=== PATIENT | female | born 1955 | race African-American/Black ===

== ENCOUNTER 2020-04-19 10:44 | Inpatient (IN) | payer MEDICARE, MEDICAID, SELFPAY ==
[2020-04-19] VITALS (12 sets, daily range): BP systolic 139–162; BP diastolic 66–100; PULSE 72–93; RESP 16–26; TEMP 36–37.1; O2SAT 97–100; BMI 35.0
--- NOTE | ~2020-04-19 | CT_ITS ---
EXAMINATION: CT soft tissue neck w con EXAM DATE: 04/19/2020 11:24 INDICATION: Tongue swelling starting today. TECHNIQUE: Spiral CT of the neck was performed following intravenous injection of 75 mL Omnipaque 350 . Axial, coronal and sagittal images were reviewed. The dose-length product (DLP) for this examinat ion was 530.41 mGy-cm. The exposure was tailored according to patient size (auto mA exposure control ), and iterative reconstruction (ASIR) was used as additional dose reduction technique. There is no prior study for comparison. FINDINGS: Nonspecific swelling of the tongue. Epiglottis is normal in thickness. No abscess. The thy roid gland is unremarkable. The submandibular and parotid glands are symmetric. There is no cervi brian lymphadenopathy. There are no masses identified. The superior mediastinum is unremarkable. The airway is unremarkable. Parapharyngeal and pre-glottic fat planes are preserved. The opacifie d vasculature is patent. The orbits are unremarkable. Visualized sinuses and mastoid air cells ar e well aerated. Lung apices are clear. Moderate lower cervical disc disease, advanced arthropathy. IMPRESSION: Severe tongue edema, clinical correlation. Reviewed, dictated and finalized at location B.
--- NOTE | 2020-04-19 10:56 | ED.ABDPAIN ---
HPI - Abdominal Pain General Chief Complaint: Dental/Oral <LAURA Everett Last Filed: 04/19/20 12:10> Stated Complaint: swollen tongue <LAURA Everett Last Filed: 04/19/20 12:10> Time Seen by Provider: 04/19/20 10:45 <LAURA Everett Last Filed: 04/19/20 12:10> Source: patient <LAURA Everett Last Filed: 04/19/20 12:10> Mode of arrival: ambulatory <LAURA Everett Last Filed: 04/19/20 12:10> Limitations: no limitations <LAURA Everett Last Filed: 04/19/20 12:10> History of Present Illness HPI narrative: Patient is a 65-year-old female who notes she woke this morning with swelling and tenderness of the right side of the tongue which has continued to increase in size since presents per private vehicle patient notes tenderness and pain to the right side of the neck under the mouth and up into the lateral aspect of the tongue. Patient notes yesterday she was fine. Patient notes he has had facial swelling in the past but not of this nature. Patient is currently on lisinopril. Patient denies any new medications. Patient on arrival in the room in no distress. Patient denies other wounds sores. <LAURA Everett Last Filed: 04/19/20 12:10> Related Data Home Medications: Home Medications Medication Instructions Recorded Confirmed albuterol sulfate [Ventolin HFA] 2 puff INHALATION Q6H PRN 04/19/20 04/19/20 brexpiprazole [Rexulti] 1 mg PO DAILY 04/19/20 04/19/20 budesonide-formoterol [Symbicort] 2 puff INHALATION Q12H 04/19/20 04/19/20 ergocalciferol (vitamin D2) 50,000 unit PO WEEKLY 04/19/20 04/19/20 escitalopram oxalate 20 mg PO DAILY 04/19/20 04/19/20 fluticasone propionate 2 spray INTRANASAL DAILY 04/19/20 04/19/20 meloxicam 15 mg PO DAILY 04/19/20 04/19/20 metformin 1,000 mg PO BID 04/19/20 04/19/20 methylprednisolone 4 mg PO DAILY 04/19/20 04/19/20 montelukast 10 mg PO HS 04/19/20 04/19/20 tramadol 50 - 100 mg PO Q6H PRN 04/19/20 04/19/20 verapamil 120 mg PO DAILY 04/19/20 04/19/20 <Jim Kimbrough PA-C - Last Filed: 04/19/20 12:10> Allergies/Adverse Reactions: Allergies Allergy/AdvReac Type Severity Reaction Status Date / Time ampicillin AdvReac Mild yeast Verified 04/19/20 11:22 infection <Jim Kimbrough PA-C - Last Filed: 04/19/20 12:10> Review of Systems Review of Systems: All systems reviewed & are unremarkable except as noted in HPI and below <Jim Kimbrough PA-C - Last Filed: 04/19/20 12:10> [facility] Past Medical History Medical History: Medical History (Updated 04/19/20 @ 17:36 by Ania Santiago NP) Asthma Depression with anxiety Diabetes mellitus Hard of hearing Bilateral hearing aid Hypertension Ruptured appendix <Jim Kimbrough PA-C - Last Filed: 04/19/20 12:10> Surgical History Surgical History: Surgical History (Updated 04/19/20 @ 17:23 by Ania Santiago NP) History of incision and drainage To her sacral area History of partial hysterectomy <Jim Kimbrough PA-C - Last Filed: 04/19/20 12:10> Family History Family History: Family History (Updated 04/19/20 @ 17:24 by Ania Santiago NP) Father Malignant neoplasm of prostate Mother Diabetes mellitus <Jim Kimbrough PA-C - Last Filed: 04/19/20 12:10> Social History Social History: Social History (Updated 04/19/20 @ 17:25 by Ania Santiago NP) Social History: The patient lives with her fiance. She has no children. She is on disability. She desires to be a full code and her fiance is her durable power contracts attorney for healthcare and also her sister. The patient stated that she does drink vodka occasionally and smokes occasional marijuana. She stated the last time she drink was last night which she had a little bit of vodka and took a hit off of the joint. Smoking status: Current every day smoker Tobacco type: cigarettes Second hand tobacco smoke expo
[2020-04-19] MEDS: methylPREDNISolone SOD SUCC 125 MG VIAL IV PUSH (11:02)
[2020-04-19] MEDS: FAMOTIDINE 20 MG/2 ML VIAL IV PUSH ×2 (11:03→20:29)
[2020-04-19] MEDS: EPINEPHrine HCL INJ 1 MG/ML AMPUL 0.3 MG IM (11:05)
[2020-04-19 11:07] LABS: Basophils Absolute Auto 0.1 K/mm3 (0.0-0.1); Basophils Percent Auto 0.4 % (0.2-1.2); Eosinophils Absolute Auto 0.1 K/mm3 (0-0.3); Hemoglobin 14.9 g/dL (12.0-15.0); Immature Granulocyte Absolute 0.06 K/mm3 (0.00-0.031); Immature Granulocyte Percent A 0.4 % (0-0.5); Lymphocytes Absolute Auto 2.75 K/mm3 (0.9-3.2); Lymphocytes Percent Auto 19.6 % (18.3-44.2); Mean Corpuscular HGB Conc 32.4 g/dl (32-36); Mean Corpuscular Hemoglobin 30.7 pg (26-34); Mean Corpuscular Volume 94.7 fl (80-100); Mean Platelet Volume 9.7 fl (7.4-10.4); Monocytes Absolute Auto 1.2 K/mm3 (0.1-0.6); Monocytes Percent Auto 8.4 % (2.6-8.5); Neutrophils Absolute Auto 9.9 K/mm3 (1.3-6.7); Neutrophils Percent Auto 70.2 % (45.5-73.1); Platelet Count Result 311 k/mm3 (150-375); Red Blood Count 4.86 M/mm3 (4.2-5.4)
[2020-04-19 11:16] LABS: INR 0.9
[2020-04-19 11:17] LABS: Partial Thromboplastin Time 26.5 SECONDS (22.3-36.8)
[2020-04-19 11:18] LABS: Blood Urea Nitrogen 8 mg/dL (7-17); Calcium 11.2 mg/dL (8.4-10.2); Carbon Dioxide 25 mmol/L (22-30); Chloride 106 mmol/L (98-107); Estimated Glomerular Filt Rate > 60; Glucose 98 mg/dL (65-105); Potassium 4.3 mmol/L (3.4-5.0); Sodium 136 mmol/L (137-145)
--- NOTE | 2020-04-19 13:36 | ADMGEN ---
This patient, Nancie Verma, was admitted to Intensive Care Unit-8. Patient/family oriented to hospital policies and general routines including ID bracelet, bed and alarms, visiting hours, pain management, procedures, bathroom and other care routines, personal items, smoking policy, room service/diet, and visiting hours. Valuables list has been completed. Information on how to activate the Rapid Response Team has been discussed. Patient/Family are encouraged to report perceived risks to care and to ask questions if they do not understand what they are told or what they should do.
--- NOTE | 2020-04-19 14:08 | WPDCNINT ---
Assessment and Plan Assessment and plan (1) Angioedema: Qualifiers: Encounter type: initial encounter Qualified Code(s): T78.3XXA - Angioneurotic edema, initial encounter Code(s): T78.3XXA - Angioneurotic edema, initial encounter Status: Acute Assessment and Plan: Patient presented with swelling of the right side of face, right side of the neck and lateral aspect of the tongue on the right side. -patient is NOT TAKING LISINOPRIL, this was confirmed by the patient's sister, who stated that she had swelling in the past which was not this severe and lisinopril was discontinued at that time. -patient did take smokes some marijuana, drank some vodka night prior to admission -she received epinephrine, Solu-Medrol, famotidine, Benadryl in the ER -will continue Solu-Medrol, famotidine and Benadryl -continue to monitor airway closely -patient is on multiple psych medications, citalopram can cause anaphylaxis. 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 hydralazine (4) DVT prophylaxis: Code(s): Z29.9 - Encounter for prophylactic measures, unspecified Status: Acute Assessment and Plan: SCDs Additional Plan Discussed with patient and her sister at bedside updated them with patient's condition and plan of care. They aware that the patient will be getting steroids, Benadryl, famotidine. We will be monitoring the patient closely for any airway compromise. I did let them know that if her airway is compromised may have to put a breathing tube and connected to a breathing machine to which they are agreeable. Code status: Full code Critical care time spent: 41 minutes Due to a high probability of clinically significant, life threatening deterioration, the patient required my highest level of preparedness to intervene emergently and I personally spent this critical care time directly and personally managing the patient. This critical care time included obtaining a history; examining the patient; pulse oximetry; ordering and review of studies; arranging urgent treatment with development of a management plan; evaluation of patient's response to treatment; frequent reassessment; and discussions with other providers. It was exclusive of separately billable procedures and treating other patients and teaching time. Please see Assessment and Plan section and the rest of the note for further information on patient assessment and treatment Strategy Analyst Consult Note Consult date: 04/19/20 Time Seen: 13:51 Reason for consult: Angioedema, swelling of the tongue HPI: Nancie Verma is a 65 year old female with past medical history of diabetes mellitus, hypertension presented the ED on 04/19/2020 with swelling of the tongue, right side of face and right-sided off the neck when she woke up this morning. She denies any drooling, shortness of breath, difficulty breathing, difficulty swallowing. Patient does complain of some pain at the back of her throat. PATIENT HAD SOME SIMILAR SWELLING FEW YEARS BACK, AT THAT TIME SHE WAS ON LISINOPRIL WHICH WAS DISCONTINUED. History obtained from patient and her sister who was at the bedside. Patient stated she has not been using any new toothpaste or mouthwash. She had some weed and vo
[2020-04-19 14:47] LABS: Hemoglobin A1C 5.4 % (<5.7)
--- NOTE | 2020-04-19 17:16 | PM.IMHP ---
H&P: HPI History of Present Illness Chief complaint: Angioedema tongue Narrative: Nancie Verma is a 65 year old female who has a history of hypertension. The patient woke up this morning with swelling and tenderness to the right side of her tongue in her face. It this continue to continue to increase this morning. The patient was having difficulty talking. She came to the emergency room per private vehicle. The patient informed me that she does not take lisinopril. However she did take lisinopril in the past and had angioedema and stop the lisinopril back then. The patient is on anti depression medicine. She stated she did not try any new food or take any Garfield inhibitors. She denied any shortness of breath, drooling, difficulty breathing, or difficulty swallowing. She is having some pain to her right side of her tongue and in her neck., Benadryl, epinephrine, and Solu-Medrol. X-ray of the soft tissue of the neck was read as severe tongue edema clinical correlation. Admitted to the intensive care unit for angioedema. Date of service 04/19/2020 Review of Systems Review of Systems: All systems reviewed & are unremarkable except as noted in HPI and below Constitutional: Constitutional: Reports as per HPI and Reports no additional constitutional complaints Eyes: Eyes: Reports as per HPI and Reports no additional eye complaints ENT: Reports system reviewed and no additional complaints, except as documented and Reports Normal hearing present Cardiovascular: Cardiovascular: Reports no additional cardiovascular complaints Respiratory: Respiratory: Reports no additional respiratory complaints and Reports no additional respiratory complaints Gastrointestinal: Gastrointestinal: Reports as per HPI and Reports no additional gastrointestinal complaints Musculoskeletal: Musculoskeletal: Reports no additional musculoskeletal complaints Integumentary/Breasts: Skin/Breast: Reports system reviewed and no additional complaints, except as docu and Reports as per HPI Neurologic: Reports system reviewed and no additional complaints, except as documented, Reports as per HPI and Reports Normal hearing present Psychiatric: Psychiatric: Reports no additional psychiatric complaints and Reports as per HPI Endocrine: Endocrine: Reports no additional endocrine complaints Hematologic/Lymphatic: Hematologic/Lymphatic: Reports no additional hematologic/lymphatic complaints Allergic/Immunologic: Allergic/Immunologic: Reports no additional allergic/immunologic complaints [facility] Past Medical History Medical History (Updated 04/19/20 @ 17:36 by Ania Santiago NP) Asthma Depression with anxiety Diabetes mellitus Hard of hearing Bilateral hearing aid Hypertension Ruptured appendix Surgical History Surgical History (Updated 04/19/20 @ 17:23 by Ania Santiago NP) History of incision and drainage To her sacral area History of partial hysterectomy Family History Family History (Updated 04/19/20 @ 17:24 by Ania Santiago NP) Father Malignant neoplasm of prostate Mother Diabetes mellitus Social History Social History (Updated 04/19/20 @ 17:25 by Ania Santiago NP) Social History: The patient lives with her fiance. She has no children. She is on disability. She desires to be a full code and her fiance is her durable power insurance attorney for healthcare and also her sister. The patient stated that she does drink vodka occasionally and smokes occasional marijuana. She stated the last time she drink was last night which she had a little bit of vodka and took a hit off of the joint. Smoking status: Current every day smoker Tobacco type: cigarettes Second hand tobacco smoke exposure: No Alcohol intake: former Substance use: current Substance use type: marijuana Gender identity (if verbalized by the patient): Female Spiritual care concerns: No Meds Home Medications and Allergies Home Medications Medication In
[2020-04-19 18:08] LABS: Glucose Point of Care 138 (65-105)
[2020-04-19] MEDS: methylPREDNISolone SOD SUCC 125 MG VIAL 60 MG IV PUSH ×2 (18:29→23:28)
[2020-04-19 23:34] LABS: Glucose Point of Care 135 (65-105)
[2020-04-20] VITALS (17 sets, daily range): BP systolic 121–149; BP diastolic 74–99; PULSE 75–111; RESP 18–25; TEMP 36.6–37.2; O2SAT 96–100
[2020-04-20] MEDS: methylPREDNISolone SOD SUCC 125 MG VIAL 60 MG IV PUSH ×4 (05:27→23:19)
[2020-04-20 05:31] LABS: Glucose Point of Care 137 (65-105)
--- NOTE | 2020-04-20 08:39 | WPDINTPN ---
Progress Note: A&P Assessment and Plan (1) Angioedema: Qualifiers: Encounter type: initial encounter Qualified Code(s): T78.3XXA - Angioneurotic edema, initial encounter Code(s): T78.3XXA - Angioneurotic edema, initial encounter Status: Acute Assessment and Plan: Patient presented with swelling of the right side of face, right side of the neck and lateral aspect of the tongue on the right side. -Patient is NOT TAKING LISINOPRIL, this was confirmed by the patient's sister, who stated that she had swelling in the past which was not this severe and lisinopril was discontinued at that time. Check C1 esterase level. -patient did smokes some marijuana, drank some vodka prior to admission -she received epinephrine, Solu-Medrol, famotidine, Benadryl in the ER -will continue Solu-Medrol, famotidine and Benadryl. -Continue to monitor airway closely -Patient is on multiple psych medications, citalopram can cause anaphylaxis. Patient also on tramadol and meloxicam which can cause anaphylaxis. Her psych medication has been on hold for now. She will be attempted home with clear liquid diet later today if she is able to tolerated and swallow it without any issues. P.o. medication will be started later today as well if she is able to tolerate p.o. diet. 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 Which has been on hold for now. -will will place patient on Accu-Cheks and sliding scale insulin (3) Essential hypertension: Code(s): I10 - Essential (primary) hypertension Status: Acute Assessment and Plan: Patient history of hypertension on verapamil at home. Which has been on hold for now. -will order p.r.n. hydralazine (4) DVT prophylaxis: Code(s): Z29.9 - Encounter for prophylactic measures, unspecified Status: Acute Assessment and Plan: SCDs Additional Plan Discussed with patient at bedside updated them with patient's condition and plan of care. Code status: Full code She will be started on clear liquid diet later today if she is able to tolerated and swallow it without any issues.If she remains stable until later today then she will be downgraded to IMC status. Critical care time spent: 36 minutes Due to a high probability of clinically significant, life threatening deterioration, the patient required my highest level of preparedness to intervene emergently and I personally spent this critical care time directly and personally managing the patient. This critical care time included obtaining a history; examining the patient; pulse oximetry; ordering and review of studies; arranging urgent treatment with development of a management plan; evaluation of patient's response to treatment; frequent reassessment; and discussions with other providers. It was exclusive of separately billable procedures and treating other patients and teaching time. Please see Assessment and Plan section and the rest of the note for further information on patient assessment and treatment Subjective Date/time seen: 04/20/20 08:39 Swelling has been decreasing. She did mention to have some itching which has been improving as well. Denied to have any shortness of breath. Denied have any issues handling with her secretion. She did mention to have regurgitation of the water she try to drink. Hemodynamics have been stable. She was on CPAP through nasal mask. It is her baseline and does have history of obstructive sleep apnea. Review of Systems Review of Systems: All systems reviewed & are unremarkable except as noted in HPI
[2020-04-20] MEDS: FAMOTIDINE 20 MG/2 ML VIAL IV PUSH ×2 (09:29→20:41)
[2020-04-20 12:10] LABS: Glucose Point of Care 141 (65-105)
--- NOTE | 2020-04-20 16:19 | PM.IMPN ---
Progress Note: A&P Assessment and Plan (1) Hard of hearing: Code(s): H91.90 - Unspecified hearing loss, unspecified ear Status: Chronic (2) Depression with anxiety: Code(s): F41.8 - Other specified anxiety disorders Status: Chronic Assessment and Plan: Citalopram is on hold. (3) DVT prophylaxis: Code(s): Z29.9 - Encounter for prophylactic measures, unspecified Status: Acute (4) Essential hypertension: Code(s): I10 - Essential (primary) hypertension Status: Acute Assessment and Plan: P.r.n. hydralazine. Her verapamil and Lexapro on hold. (5) Diabetes mellitus: Qualifiers: Diabetes mellitus type: type 2 Diabetes mellitus terminal worker insulin use: without terminal worker use Diabetes mellitus complication status: without complication Qualified Code(s): E11.9 - Type 2 diabetes mellitus without complications Code(s): E11.9 - Type 2 diabetes mellitus without complications Status: Acute Assessment and Plan: Continue with Accu-Cheks every 6 hours with sliding scale every 6 hours p.r.n. metformin on hold. (6) Angioedema: Qualifiers: Encounter type: initial encounter Qualified Code(s): T78.3XXA - Angioneurotic edema, initial encounter Code(s): T78.3XXA - Angioneurotic edema, initial encounter Status: Acute Assessment and Plan: Continue with Benadryl, Pepcid, and Solu-Medrol. Pt can move to the medical floor. Subjective Date/time seen: 04/20/20 16:19 Interval history: 65 year old female who has a history of hypertension. The patient woke up this morning with swelling and tenderness to the right side of her tongue in her face. Pt denies SOB or CP. Pt denies taking lisinopril ? side effect from citalopram Review of Systems Review of Systems: All systems reviewed & are unremarkable except as noted in HPI and below Respiratory: Respiratory: Denies cough, Denies excessive phlegm production and Denies dyspnea Exam Const: General: cooperative, healthy appearing, comfortable, no acute distress, well developed, alert, awake and Physically active Nutritional Appearance: average body habitus and well nourished Orientation/consciousness: oriented to person, oriented to place, oriented to time and patient oriented x3 Limitations: no limitations HENMT: Head: normal to inspection, No palpable skull fracture present, normocephalic, atraumatic and other (Edema to the right side the tongue, right cheek and right neck.) Ears: hearing grossly normal bilaterally and external ears normal General nose exam: Normal external nose present, Normal nares present and No nasal polyps present Mouth: Yes Normal oral and palatal mucosa present Throat: posterior oropharynx normal Resp: Effort & Inspection: normal respiratory effort Auscultation: clear to auscultation bilaterally Percussion: percussion normal Cardio: Palpation: normal PMI Rate: regular rate Rhythm: regular rhythm Heart sounds: S1 normal heart sound present and S2 normal heart sound present Peripheral pulses: Peripheral pulses 2+ throughout GI: Inspection: normal to inspection Auscultation: normal bowel sounds Rectal Exam: deferred Neuro: General: oriented to person, oriented to place, oriented to time and patient oriented x3 Cranial nerves: Yes Equal, round and reactive pupils present and Yes hard of hearing (Bilateral hearing aids) Cognition (Neuro): normal cognition Speech: normal speech Extrem: General: normal to inspection Right upper extremity: normal to inspection and shoulder/upper arm Left upper extremity: normal to inspection and shoulder/upper arm Right lower extremity: normal to inspection Left lower extremity: normal to inspection Objective Data Vital Signs Vital Signs: Vital Signs - 24 hr 04/19/20 18:00 04/19/20 20:00 04/19/20 21:17 Temperature 37.1 C Pulse Rate 76 81 86 Respiratory Rate 25 H 26 H Blood Pressure 142/88 H 147/86 H
[2020-04-20 17:19] LABS: Glucose Point of Care 182 (65-105)
--- NOTE | 2020-04-20 18:05 | PC.NURSE ---
This patient, Nancie Verma, was received from ICU on 04/20/20 at 1805. Personal belongings list checked and signed. Patient/family oriented to unit policies and routines
[2020-04-20] MEDS: HEPARIN SODIUM 5,000 UNITS/ML VIAL 5000 UNITS SUB-Q (20:41)
[2020-04-20 21:28] LABS: Glucose Point of Care 230 (65-105)
[2020-04-21] VITALS (11 sets, daily range): BP systolic 117–139; BP diastolic 69–81; PULSE 75–97; RESP 18–23; TEMP 35.9–36.8; O2SAT 97–98
[2020-04-21] MEDS: methylPREDNISolone SOD SUCC 125 MG VIAL 60 MG IV PUSH (06:08)
[2020-04-21 08:02] LABS: Glucose Point of Care 127 (65-105)
[2020-04-21] MEDS: FAMOTIDINE 20 MG/2 ML VIAL IV PUSH (08:27)
[2020-04-21] MEDS: HEPARIN SODIUM 5,000 UNITS/ML VIAL 5000 UNITS SUB-Q (08:27)
[2020-04-21] MEDS: predniSONE 20 MG, predniSONE 10 MG 30 MG PO (12:09)
[2020-04-21 12:16] LABS: Glucose Point of Care 85 (65-105)
--- NOTE | 2020-04-21 13:56 | PM.DS ---
DS: Admitting Diagnosis Admitting Diagnosis Admitting Diagnosis: Angioneurotic edema, initial encounter DS: Discharge Diagnosis Discharge Diagnosis (1) Hard of hearing: Code(s): H91.90 - Unspecified hearing loss, unspecified ear Status: Chronic (2) Depression with anxiety: Code(s): F41.8 - Other specified anxiety disorders Status: Chronic Assessment and Plan: Citalopram is on hold. (3) Essential hypertension: Code(s): I10 - Essential (primary) hypertension Status: Acute Assessment and Plan: Verapamil restarted. (4) Diabetes mellitus: Qualifiers: Diabetes mellitus complication status: without complication Diabetes mellitus longterm insulin use: without termite control representative use Diabetes mellitus type: type 2 Qualified Code(s): E11.9 - Type 2 diabetes mellitus without complications Code(s): E11.9 - Type 2 diabetes mellitus without complications Status: Acute Assessment and Plan: Continue Metformin (5) Angioedema: Qualifiers: Encounter type: initial encounter Qualified Code(s): T78.3XXA - Angioneurotic edema, initial encounter Code(s): T78.3XXA - Angioneurotic edema, initial encounter Status: Acute Assessment and Plan: Continue with Benadryl, Pepcid, and prednisone at home, medrol dose pack DS: Summary Time Spent with Patient Time attestation: Total time spent providing and/or coordinating discharge services:40 minutes on day of dischrage Exam Const: General: cooperative, healthy appearing, comfortable, no acute distress, well developed, alert, awake and Physically active Nutritional Appearance: average body habitus and well nourished Orientation/consciousness: oriented to person, oriented to place, oriented to time and patient oriented x3 Limitations: no limitations HENMT: Other: Tongue slightly swollen improving Chest: Chest palpation & inspection: normal inspection of the chest Resp: Effort & Inspection: normal respiratory effort Auscultation: clear to auscultation bilaterally Percussion: percussion normal Cardio: Palpation: normal PMI Rate: regular rate Rhythm: regular rhythm Heart sounds: S1 normal heart sound present and S2 normal heart sound present Peripheral pulses: Peripheral pulses 2+ throughout GI: Inspection: normal to inspection Auscultation: normal bowel sounds Rectal Exam: deferred Skin: General skin exam: normal color Lesions: no lesions Rashes: no rashes Trauma: no lacerations or abrasions Wounds: no wounds Hair: normal Nails: normal Neuro: General: oriented to person, oriented to place, oriented to time and patient oriented x3 Cranial nerves: Yes Equal, round and reactive pupils present and Yes hard of hearing (Bilateral hearing aids) Cognition (Neuro): normal cognition Speech: normal speech Extrem: General: normal to inspection Right upper extremity: normal to inspection and shoulder/upper arm Left upper extremity: normal to inspection and shoulder/upper arm Right lower extremity: normal to inspection Left lower extremity: normal to inspection Psych: Appearance: grossly normal Mental Status: mental status grossly normal Speech and movement: Normal speech and movement present Affect: normal affect Attitude: cooperative Thought process: Normal thought process present Insight: Good insight present (Psych) Judgement: Good judgement present (Psych) DS: Data Data Completed and Pending Labs on day of discharge: Labs from last 24 hours 04/21/20 04/21/20 04/20/20 12:06 07:44 21:26 POC Capillary Glucose 85 127 H 230 H 04/20/20 17:18 POC Capillary Glucose 182 H Discharge Plan Discharge Attending physician on discharge: Leilani Grossman Discharging Clinician: Leilani Grossman Anticipated Discharge Date/Time: 04/21/20 13:51 Patient Disposition: Home, Self-Care Activity: as tolerated Diet: clear liquid Discharge Instructi
[2020-04-25 04:18] LABS: C1 Esterase Inhibitor >100 % (>=68)
== END 2020-04-21 15:10 | disposition home or self-care (01) | DRG 916 ==
LOC: ANHED 12:16 → ANHICU 12:37 → ANHIMU 04-21 13:56 → ANHICU 04-25 09:44 → ANHIMU 04-25 09:44
PROVIDERS: Emergency Medicine Emergency Medical Services; Internal Medicine; Internal Medicine Critical Care Medicine; Admitting Provider Internal Medicine; Emergency Provider General Practice; PCP Family Medicine; Visit Provider Family Medicine
DX: T78.3XXA Angioneurotic edema, initial encounter (principal); E11.9 Type 2 diabetes mellitus without complications; I10 Essential (primary) hypertension; F41.8 Other specified anxiety disorders; H91.93 Unspecified hearing loss, bilateral
CPT/HCPCS: 36415; 70491; 80048; 83036; 85025; 85610; 85730; 86160; 94640; 96372; 96374; 96375; 99285; A9270; J0131; J0171; J1200; J1644; J2930; J7512; Q9967

== ENCOUNTER 2021-03-18 15:03 | Emergency (ER) | payer MEDICARE, MEDICAID, SELFPAY ==
--- NOTE | ~2021-03-18 | XR_ITS ---
XR chest 2V 03/18/2021 16:12 Indication: Shortness of breath and cough. Asthma. Procedure: PA and lateral views of the chest Comparison: Comparison to multiple prior studies sequentially, with oldest reviewed study dated 12/01. Findings: There is atelectasis/scarring left midlung zone, unchanged. No acute focal pneumonia, edema , pleural effusion or pneumothorax. No acute osseous abnormality. Impression: 1: No acute cardiopulmonary disease. Reviewed, dictated and finalized at location A. Impression: 1: No acute cardiopulmonary disease.
[2021-03-18 15:27] VITALS: BP 138/84; PULSE 91; RESP 18; TEMP 36.3; O2SAT 100
--- NOTE | 2021-03-18 15:34 | ECG_ITS ---
Measurements Intervals [place] Rate: 91 P: 51 W[place]: 131 QRS: -31 QRSD: 100 T: 77 QT: 382 QTc: 470 Interpretive Statements SINUS RHYTHM LEFT AXIS DEVIATION DELAYED PRECORDIAL R/S TRANSITION NONSEPCIFIC ST ELEVATION IN ANT/INF LEADS NONSPECIFIC ST & T-WAVE ABNORMALITY- HIGH LATERAL LEADS BORDERLINE ECG Electronically Signed On 03-18-2021 18:59:24 CDT by Juliano Murdock D.O.
[2021-03-18 15:46] LABS: Basophils Absolute Auto 0.1 K/mm3 (0.0-0.1); Basophils Percent Auto 0.4 % (0.2-1.2); Eosinophils Absolute Auto 0.2 K/mm3 (0-0.3); Eosinophils Percent Auto 1.3 % (0-4.4); Hematocrit 41.4 % (37.0-47.0); Hemoglobin 13.7 g/dL (12.0-15.0); Immature Granulocyte Absolute 0.05 K/mm3 (0.00-0.031); Immature Granulocyte Percent A 0.4 % (0-0.5); Lymphocytes Absolute Auto 3.06 K/mm3 (0.9-3.2); Lymphocytes Percent Auto 23.9 % (18.3-44.2); Mean Corpuscular HGB Conc 33.1 g/dl (32-36); Mean Corpuscular Hemoglobin 30.9 pg (26-34); Mean Corpuscular Volume 93.5 fl (80-100); Mean Platelet Volume 9.5 fl (7.4-10.4); Monocytes Percent Auto 7.8 % (2.6-8.5); Neutrophils Absolute Auto 8.5 K/mm3 (1.3-6.7); Neutrophils Percent Auto 66.2 % (45.5-73.1); Platelet Count Result 314 k/mm3 (150-375); Red Blood Count 4.43 M/mm3 (4.2-5.4); Red Cell Distribution Width 16.3 % (11.5-14.5); White Blood Count 12.8 K/mm3 (4.5-10.0)
[2021-03-18 15:58] LABS: Anion Gap 7 mmol/L (8-16); Blood Urea Nitrogen 10 mg/dL (7-17); Calcium 11.3 mg/dL (8.4-10.2); Carbon Dioxide 25 mmol/L (22-30); Chloride 109 mmol/L (98-107); Estimated CRCL calculation 70 ml/min; Estimated Glomerular Filt Rate > 60; Glucose 115 mg/dL (65-105); Potassium 3.5 mmol/L (3.4-5.0); Sodium 141 mmol/L (137-145)
[2021-03-18 16:48] VITALS: BP 163/109; PULSE 97; RESP 17; O2SAT 100
--- NOTE | 2021-03-18 16:51 | ED.SOB ---
HPI - SOB/Dyspnea General Chief Complaint: Shortness of Breath/Dyspnea Stated Complaint: SOB AT NIGHT, HX SLEEP APNEA Time Seen by Provider: 03/18/21 16:41 Source: patient Mode of arrival: ambulatory Limitations: other (patient is hard of hearing) History of Present Illness HPI Narrative: This is a 66-year-old female that presents to the emergency department for feelings of shortness of breath at night. Reports she feels like she wakes up gasping. Reports history of sleep apnea, but she has not been wearing her CPAP machine for years. Reports a intermittent productive cough. Denies fever, chest pain, or lower extremity edema. Related Data Home Medications Medication Instructions Recorded Confirmed Rexulti 1 mg PO DAILY 04/19/20 04/19/20 albuterol sulfate [Ventolin HFA] 2 puff INHALATION Q6H PRN 04/19/20 04/19/20 budesonide-formoterol [Symbicort] 2 puff INHALATION Q12H 04/19/20 04/19/20 ergocalciferol (vitamin D2) 50,000 unit PO WEEKLY 04/19/20 04/19/20 fluticasone propionate 2 spray INTRANASAL DAILY 04/19/20 04/19/20 meloxicam 15 mg PO DAILY 04/19/20 04/19/20 metformin 1,000 mg PO BID 04/19/20 04/19/20 montelukast 10 mg PO HS 04/19/20 04/19/20 tramadol 50 - 100 mg PO Q6H PRN 04/19/20 04/19/20 verapamil 120 mg PO DAILY 04/19/20 04/19/20 Allergies Allergy/AdvReac Type Severity Reaction Status Date / Time escitalopram AdvReac Intermediate Swelling Verified 03/18/21 16:49 of Lip/Tongue/Throat lisinopril AdvReac Intermediate Swelling Verified 03/18/21 16:49 of Lip/Tongue/Throat ampicillin AdvReac Mild yeast Verified 03/18/21 16:49 infection Review of Systems Review of Systems: Narrative: CONSTITUTIONAL: Denies fever CARDIOVASCULAR: Denies chest pain, or edema. RESPIRATORY: Reports cough and dyspnea. All systems reviewed & are unremarkable except as noted in HPI and below PMFSH Past Medical History Medical History (Updated 03/18/21 @ 19:08 by Joselin L. Higgins, PA-C) Asthma Depression with anxiety Diabetes mellitus Hard of hearing Bilateral hearing aid Hypertension Ruptured appendix Surgical History Surgical History (Updated 04/19/20 @ 17:23 by Ania Santiago NP) History of incision and drainage To her sacral area History of partial hysterectomy Family History Family History (Updated 04/19/20 @ 17:24 by Ania Santiago NP) Father Malignant neoplasm of prostate Mother Diabetes mellitus Social History Social History (Updated 04/19/20 @ 17:25 by Ania Santiago NP) Social History: The patient lives with her fiance. She has no children. She is on disability. She desires to be a full code and her fiance is her durable power match maker for healthcare and also her sister. The patient stated that she does drink vodka occasionally and smokes occasional marijuana. She stated the last time she drink was last night which she had a little bit of vodka and took a hit off of the joint. Smoking status: Current every day smoker Tobacco type: cigarettes Second hand tobacco smoke exposure: No Alcohol intake: former Substance use: current Substance use type: marijuana Gender identity (if verbalized by the patient): Female Spiritual care concerns: No Exam Narrative: Exam Narrative: GENERAL: Well-appearing, obese, and in no acute distress. HEAD: Normocephalic, atraumatic. EYES: EOMI. ENT: Mucous membranes moist. Oropharynx without tonsillar hypertrophy exudate or other lesions. CHEST: Clear to auscultation. No respiratory distress. No wheezes rales or rhonchi HEART: Regular rate and rhythm. No murmur heard. Normal peripheral pulses. EXTREMITIES: Normal range of motion. No edema. SKIN: Warm, dry, no rash. NEURO: No focal deficits. Alert and oriented x3. PSYCH: Normal mood and affect Course Consultations Consultation #1: Spoke with Dr. Christopher who will follow up with patient in clinic. Date: 03/18/21 Time: 19:10 Vital Signs Vital signs: Vital Sign
[2021-03-18 17:41] LABS: Alveolar/Arterial O2 Gradient 31.9 mmHg; Base Excess ABG -1.3 mEq/l (+/-2.0); Carboxyhemoglobin 3.6 % THb (0-2.0); Fractional Inspired Oxygen 21 %; HCO3 ABG 23.1 mEq/l (22.0-26.0); Methemoglobin ABG 0.2 %THb (0-1.5); Modified Allen's Test Pass; Oxygen Content ABG 18.4 %vol (16.0-22.0); Oxygen Saturation ABG 94.6 % (95.0-100.0); Oxyhemoglobin 90.7 % THb (90.0-100.0); PCO2 ABG 38.2 mmHg (35.0-45.0); PO2 ABG 72.1 mmHg (80.0-100.0); PO2 FiO2 Ratio Arterial Blood 3.43 %; Reduced Hemoglobin 5.5 %THb (0-5.0); Site Drawn RIGHT RADIAL; Total Hemoglobin 14.4 g/dL (12.0-18.0)
[2021-03-18 17:42] LABS: Device ROOM AIR
[2021-03-18 17:46] LABS: NT Pro B Type Natriuretic Pept 24 pg/mL (5-100); Troponin I < 0.012 ng/mL (0.000-0.034)
[2021-03-18 20:00] VITALS: BP 150/95; PULSE 84; RESP 24; O2SAT 100
--- NOTE | 2021-03-18 20:08 | PC.NURSE ---
Updated pt mother.
== END 2021-03-18 20:05 | disposition home or self-care (01) ==
PROVIDERS: Emergency Medicine; Physician Assistant; Emergency Provider Emergency Medicine; PCP Family Medicine
DX: G47.30 Sleep apnea, unspecified (principal); J45.909 Unspecified asthma, uncomplicated; I10 Essential (primary) hypertension; E11.9 Type 2 diabetes mellitus without complications; Z79.84 Long term (current) use of oral hypoglycemic drugs; F41.8 Other specified anxiety disorders; F17.210 Nicotine dependence, cigarettes, uncomplicated
CPT/HCPCS: 36415; 36600; 71046; 80048; 82375; 82805; 83050; 83880; 84484; 85025; 93005; 99284

== ENCOUNTER 2021-07-02 11:25 | Emergency (ER) | payer MEDICARE, MEDICAID, SELFPAY ==
--- NOTE | ~2021-07-02 | CT_ITS ---
EXAMINATION: CT brain wo con INDICATION: Head injury COMPARISON: 08/28/2018 TECHNIQUE: Standard unenhanced head CT. The dose-length product (DLP) was 605.33 mGy-cm. The mA was a djusted according to patient size. Iterative reconstruction technique was employed. FINDINGS: There is no intracranial hemorrhage, acute infarction, or abnormal mass lesion. The ventric les are normal. There is no abnormal mass effect or midline shift. The azar-white matter differentiat ion is normal. The basal cisterns are patent. The orbits are normal. The paranasal sinuses, mastoids and calvarium are normal. IMPRESSION: 1. No acute intracranial abnormality. Reviewed, dictated and finalized at location A.
--- NOTE | ~2021-07-02 | XR_ITS ---
EXAMINATION: XR shoulder RT min 2V EXAM DATE: 07/02/2021 12:57 INDICATION: Fall, right shoulder pain, initial encounter. TECHNIQUE: The following right shoulder projections obtained: frontal projection with internal rotati on, frontal projection with external rotation, Grashey, and scapular Y view (4+ views). There is no prior study for comparison. FINDINGS: No evidence of right shoulder rotator cuff calcific tendinosis. There is mild to moderat e glenohumeral joint, mild to moderate acromioclavicular joint primary osteoarthritis. There are no a cute fractures or dislocations identified. There is no subcutaneous gas. The soft tissue is unremar kable. There are no radiopaque foreign bodies. IMPRESSION: 1. Right shoulder exam without acute osseous findings. 2. Mild to moderate osteoarthritis. Reviewed, dictated and finalized at location B.
[2021-07-02 11:35] VITALS: BP 157/86; PULSE 81; RESP 16; TEMP 35.8; O2SAT 97
--- NOTE | 2021-07-02 12:41 | PC.NURSE ---
Patient to radiology.
[2021-07-02 12:54] LABS: Add Urine Microscopic? NO; Appearance Urine Clear (Clear); Bilirubin Urine Negative (Negative); Blood Urine Negative (Negative); Color Urine Colorless (Yellow); Glucose Urine UA Negative (Negative); Ketones Urine Negative (Negative); Leukocyte Esterase Ur Negative LEU/UL (Negative); Nitrate Urine Negative (Negative); Protein Urine Negative (Negative); Specific Grav Ur 1.006 (1.001-1.035); Urobilinogen Urine Negative mg/dL (<2.0)
[2021-07-02] MEDS: HYDROcodone/acetaminophen (*CRX) 5-325 MG TABLET 1 TAB PO (13:08)
[2021-07-02 13:38] VITALS: TEMP 36.8
[2021-07-02 14:07] VITALS: BP 176/92; PULSE 76; RESP 20; O2SAT 96
--- NOTE | 2021-07-02 15:34 | ED.GENADULT ---
HPI - General Adult General Chief complaint: Fall Stated complaint: Fall/ R Shoulder Pain,?HI Time Seen by Provider: 07/02/21 11:55 History of Present Illness HPI narrative: Patient is a 66-year-old female who presents ER status post fall. Patient has trouble giving history due to being hard of hearing however medication was made using handwriting. Patient's battery is in her hearing aids. Patient reports she was walking in got caught up on the jewelry box and fell to the ground. She reports she is on the ground for 45 minutes and had trouble getting up due to pain in her right shoulder. She has no numbness or tingling no deformity. She is able to perform range of motion with side extremity. Patient reports she did strike her head but had and is unsure if she lost consciousness or not. She has no change in vision or hearing. She is without nausea or vomiting. She is not on blood thinners. Of note patient reports she has been having frequent urination without dysuria. She has concern for UTI. Daughter states patient is experiencing some stress due to recent break-up with a boyfriend and a family member who . Patient missed the today. Related Data Home Medications Medication Instructions Recorded Confirmed Rexulti 1 mg PO DAILY 04/19/20 04/19/20 albuterol sulfate [Ventolin HFA] 2 puff INHALATION Q6H PRN 04/19/20 04/19/20 budesonide-formoterol [Symbicort] 2 puff INHALATION Q12H 04/19/20 04/19/20 ergocalciferol (vitamin D2) 50,000 unit PO WEEKLY 04/19/20 04/19/20 fluticasone propionate 2 spray INTRANASAL DAILY 04/19/20 04/19/20 meloxicam 15 mg PO DAILY 04/19/20 04/19/20 metformin 1,000 mg PO BID 04/19/20 04/19/20 montelukast 10 mg PO HS 04/19/20 04/19/20 tramadol 50 - 100 mg PO Q6H PRN 04/19/20 04/19/20 verapamil 120 mg PO DAILY 04/19/20 04/19/20 Allergies Allergy/AdvReac Type Severity Reaction Status Date / Time escitalopram AdvReac Intermediate Swelling Verified 03/18/21 16:49 of Lip/Tongue/Throat lisinopril AdvReac Intermediate Swelling Verified 03/18/21 16:49 of Lip/Tongue/Throat ampicillin AdvReac Mild yeast Verified 03/18/21 16:49 infection Review of Systems Review of Systems: All systems reviewed & are unremarkable except as noted in HPI and below Constitutional: Constitutional: Denies chills, Denies fever(s) and Denies weakness ENT: Denies nasal congestion and Denies sore throat Cardiovascular: Cardiovascular: Denies chest pain, Denies rapid heart rate and Denies radiating jaw, neck or arm pain Respiratory: Respiratory: Denies cough and Denies dyspnea Gastrointestinal: Gastrointestinal: Denies abdominal pain, Denies nausea and Denies vomiting Musculoskeletal: Musculoskeletal: Reports arthralgias, Denies joint swelling and Denies muscle cramps Neurologic: Denies dizziness, Reports syncope, Denies headache(s), Denies focal weakness and Denies numbness PMFSH Past Medical History Medical History (Updated 07/02/21 @ 15:50 by Wagner iSu MD) Asthma Depression with anxiety Diabetes mellitus Hard of hearing Bilateral hearing aid Hypertension Ruptured appendix Surgical History Surgical History (Updated 04/19/20 @ 17:23 by Ania Santiago NP) History of incision and drainage To her sacral area History of partial hysterectomy Family History Family History (Updated 04/19/20 @ 17:24 by Ania Santiago NP) Father Malignant neoplasm of prostate Mother Diabetes mellitus Social History Social History (Updated 04/19/20 @ 17:25 by Ania Santiago NP) Social History: The patient lives with her fiance. She has no children. She is on disability. She desires to be a full code and her fiance is her durable power occupational psychologist for healthcare and also her sister. The patient stated that she does drink vodka occasionally and smokes occasional marijuana. She stated the last time she drink was last night which she had a little bit of vodka and took a
[2021-07-02 16:21] VITALS: BP 161/90; PULSE 70; RESP 18; TEMP 36.8; O2SAT 99
== END 2021-07-02 16:23 | disposition home or self-care (01) ==
PROVIDERS: Emergency Provider Emergency Medicine; PCP Family Medicine
DX: M25.511 Pain in right shoulder (principal); F41.8 Other specified anxiety disorders; E11.9 Type 2 diabetes mellitus without complications; H91.90 Unspecified hearing loss, unspecified ear; I10 Essential (primary) hypertension; F17.210 Nicotine dependence, cigarettes, uncomplicated; Z87.09 Personal history of other diseases of the respiratory system
CPT/HCPCS: 70450; 73030; 81003; 99284; A9270

== ENCOUNTER 2021-08-27 15:01 | Emergency (ER) | payer BC, SELFPAY ==
--- NOTE | ~2021-08-27 | US_ITS ---
EXAMINATION: US venous doppler LE RT DATE: 08/27/2021 16:45 INDICATION: Right lower limb pain TECHNIQUE: Yoon scale images without and with compression and Doppler images of the right lower extre mity veins were obtained. COMPARISON: 04/22/2013 FINDINGS: The right common femoral vein, profunda femoral vein, femoral vein, popliteal vein, peronea l trunk, posterior tibial veins, and greater saphenous vein are patent. IMPRESSION: 1. Patent right lower extremity veins. No evidence of deep venous thrombosis. Reviewed, dictated and finalized at location B. 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
[2021-08-27 15:11] VITALS: BP 131/85; PULSE 95; RESP 18; TEMP 36.8; O2SAT 97
[2021-08-27] MEDS: HYDROcodone/acetaminophen (*CRX) 5-325 MG TABLET 1 TAB PO (17:11)
--- NOTE | 2021-08-27 17:18 | ED.GENADULT ---
HPI - General Adult General Chief complaint: Extremity Problem,Nontraumatic Stated complaint: right leg injury Time Seen by Provider: 08/27/21 15:20 Source: patient Mode of arrival: ambulatory Limitations: no limitations History of Present Illness HPI narrative: Patient is a 66 yo female with diabetes and copd presents with chief complaint of pain in her right lower leg that also radiates from her right hip down to her leg and has been present for multiple months. Patient reports that she was supposed to have Doppler as her primary care doctor was concerned for a DVT however the appointment was canceled. Dr. Martinez directed the patient to the emergency department when she called today requesting pain medication stating it was necessary before she could be further managed. Patient reports she was placed on a medrol dosepak which helped her symptoms, but now it has returned and escalated. She denies shortness of breath, fever, chills, direct injury. Related Data Home Medications Medication Instructions Recorded Confirmed Rexulti 1 mg PO DAILY 04/19/20 04/19/20 albuterol sulfate [Ventolin HFA] 2 puff INHALATION Q6H PRN 04/19/20 04/19/20 budesonide-formoterol [Symbicort] 2 puff INHALATION Q12H 04/19/20 04/19/20 ergocalciferol (vitamin D2) 50,000 unit PO WEEKLY 04/19/20 04/19/20 fluticasone propionate 2 spray INTRANASAL DAILY 04/19/20 04/19/20 meloxicam 15 mg PO DAILY 04/19/20 04/19/20 metformin 1,000 mg PO BID 04/19/20 04/19/20 montelukast 10 mg PO HS 04/19/20 04/19/20 tramadol 50 - 100 mg PO Q6H PRN 04/19/20 04/19/20 verapamil 120 mg PO DAILY 04/19/20 04/19/20 Allergies Allergy/AdvReac Type Severity Reaction Status Date / Time escitalopram AdvReac Intermediate Swelling Verified 08/27/21 15:20 of Lip/Tongue/Throat lisinopril AdvReac Intermediate Swelling Verified 08/27/21 15:20 of Lip/Tongue/Throat ampicillin AdvReac Mild yeast Verified 08/27/21 15:20 infection Review of Systems Review of Systems: CONSTITUTIONAL: Denies fever, chills, or sweats. EYES: Denies visual changes, redness, or discharge. ENT: Denies rhinorrhea, congestion, sore throat, or otalgia. CARDIOVASCULAR: Denies chest pain, palpitations, or edema. RESPIRATORY: Denies cough or dyspnea. GASTROINTESTINAL: Denies abdominal pain, nausea, vomiting, or diarrhea. GENITOURINARY: Denies dysuria or hematuria. SKIN: Denies rash or itching. MUSCULOSKELETAL: Reports right leg pain Denies back pain, joint pain, or myalgia. NEUROLOGIC: Denies headache, numbness, dizziness, or weakness. PSYCHIATRIC: Denies anxiety or depression. [facility] Past Medical History Medical History (Updated 08/27/21 @ 17:57 by Sancho Nash PA-C) Asthma Depression with anxiety Diabetes mellitus Hard of hearing Bilateral hearing aid Hypertension Ruptured appendix Surgical History Surgical History (Updated 04/19/20 @ 17:23 by Ania Santiago NP) History of incision and drainage To her sacral area History of partial hysterectomy Family History Family History (Updated 04/19/20 @ 17:24 by Ania Santiago NP) Father Malignant neoplasm of prostate Mother Diabetes mellitus Social History Social History (Updated 04/19/20 @ 17:25 by Ania Santiago NP) Social History: The patient lives with her fiance. She has no children. She is on disability. She desires to be a full code and her fiance is her durable power contracts attorney for healthcare and also her sister. The patient stated that she does drink vodka occasionally and smokes occasional marijuana. She stated the last time she drink was last night which she had a little bit of vodka and took a hit off of the joint. Smoking status: Current every day smoker Tobacco type: cigarettes Second hand tobacco smoke exposure: No Alcohol intake: former Substance use: current Substance use type: marijuana Gender identity (if verbalized by the patient): Female Spiritual care concerns: No Exam
[2021-08-27 18:09] VITALS: BP 158/79; PULSE 80; RESP 14; TEMP 36.6; O2SAT 100
== END 2021-08-27 18:10 | disposition home or self-care (01) ==
PROVIDERS: Emergency Provider Family Medicine; PCP Family Medicine
DX: M54.10 Radiculopathy, site unspecified (principal); M79.605 Pain in left leg; E11.9 Type 2 diabetes mellitus without complications; J44.9 Chronic obstructive pulmonary disease, unspecified; I10 Essential (primary) hypertension; F17.210 Nicotine dependence, cigarettes, uncomplicated
CPT/HCPCS: 93971; 99284; A9270

== ENCOUNTER 2022-03-06 13:01 | Outpatient (CLI) | payer MEDICARE, SELFPAY | END 2022-03-06 13:02 | disposition home or self-care (01) | LOC: ANHAUDIO 13:14 | PROVIDERS: PCP Family Medicine; Visit Provider Family Medicine | DX: H91.93 Unspecified hearing loss, bilateral (principal) | CPT/HCPCS: 99199 ==

== ENCOUNTER 2022-08-22 19:50 | Emergency (ER) | payer MEDICARE, MEDICAID, SELFPAY ==
[2022-08-22] VITALS (9 sets, daily range): BP systolic 145–178; BP diastolic 82–106; PULSE 84–89; RESP 18–22; TEMP 36.6–37.1; O2SAT 98–100
--- NOTE | ~2022-08-22 | CT_ITS ---
EXAMINATION: CT abdomen pelvis w con DATE: 08/22/2022 21:00 INDICATION: Lower abdominal pain, vomiting TECHNIQUE: Computed tomography (CT) of the abdomen and pelvis was performed with 100 CC Omnipaque 350 intravenous contrast. Automated exposure control and iterative reconstruction technique were employe d. Exam dose: 1038.03 mGy-cm total exam DLP. COMPARISON: None. FINDINGS: Minimal atelectasis at the lung bases. Cardiomegaly. No pericardial or pleural effusion. Small sliding hiatal hernia. There is diffuse hepatic steatosis. No hepatic, splenic, pancreatic, adrenal or renal space-occupying mass lesion is detected. No urinary tract calculus or hydroureteronephrosis. The urinary bladder is unremarkable. Status post hysterectomy. Normal caliber of the abdominal aorta. No intraperitoneal or retroperitoneal or pelvic mass lesion or adenopathy or ascites. There is a prominent amount of fecal material within the colon. There is some focal mucoperiosteal so ft tissue thickening in the mid sigmoid colon which may be due to relative nondistention, but soft ti ssue malignant tumor is not excluded. Colon workup is recommended if the patient has not had recent b arium enema or colonoscopy. No bowel obstruction or intraperitoneal free air. There are multiple ventral abdominal wall fat-containing hernias. Multilevel severe degenerative disc disease, particularly severe at L2-3, L4-5, moderately severe at L3-4 and L5-S1. There is associated 3 mm retrolisthesis at L5-S1. IMPRESSION: Cannot exclude soft tissue malignant mass of mid sigmoid colon; if the patient has not h ad recent barium enema or colonoscopy, colon workup is recommended Small sliding hiatal hernia Hepatic steatosis Status post hysterectomy Multiple fat-containing ventral abdominal wall hernias Degenerative changes of the lumbar spine Reviewed, dictated and finalized at [facility]. Reviewed, dictated and finalized at [facility]. IMPRESSION: Cannot exclude soft tissue malignant mass of mid sigmoid colon; if the patient has not had recent barium enema or colonoscopy, colon workup is re commended Small sliding hiatal hernia Hepatic steatosis Status post hysterectomy Multiple fat-containing ventral abdominal wall hernias Degenerative changes of the lumbar spine
--- NOTE | 2022-08-22 20:05 | ECG_ITS ---
Measurements Intervals [place] Rate: 82 P: 56 MA: 140 QRS: -10 QRSD: 98 T: 67 QT: 350 QTc: 409 Interpretive Statements SINUS RHYTHM NORMAL ECG NO PREVIOUS ECG AVAILABLE FOR COMPARISON Electronically Signed On 08-22-2022 21:52:55 CDT by Juliano Murdock D.O.
--- NOTE | 2022-08-22 20:07 | ED.ABDPAIN ---
HPI - Abdominal Pain General Chief Complaint: Abdominal Pain Stated Complaint: ABD PAIN WITH N/V Time Seen by Provider: 08/22/22 19:54 Source: patient, EMS and RN notes reviewed Mode of arrival: EMS Limitations: other (hard of hearing) History of Present Illness HPI narrative: This is a 67 year old female who presents for evaluation of abdominal pain and nausea with vomiting. Patient states she ate dinner today and she was feeling fine. She developed nausea with emesis x 3 approximately 30 minutes later. She had right lower abdominal pain and epigastric abdominal pain after her emesis started. She reports her first 2 episodes of emesis were nonbilious and nonbloody. Her last episode of emesis she saw small amount of dark substance. She reports her last bowel movement was 1 week ago. She also reports becoming lightheaded at time of her emesis. She denies chest pain, sob, diaphoresis associated with her symptoms. She denies abdominal pain or nausea currently. She denies history of GI bleed. Related Data Allergies Allergy/AdvReac Type Severity Reaction Status Date / Time Penicillins AdvReac Unknown Verified 08/22/22 20:02 Review of Systems Review of Systems: All systems reviewed & are unremarkable except as noted in HPI and below Constitutional: Constitutional: Denies chills, Denies fatigue and Denies fever(s) Cardiovascular: Cardiovascular: Denies chest pain and Denies rapid heart rate Respiratory: Respiratory: Denies chest congestion, Denies cough and Denies dyspnea Gastrointestinal: Gastrointestinal: Reports abdominal pain, Reports constipation, Reports nausea and Reports vomiting Musculoskeletal: Musculoskeletal: Denies myalgias Neurologic: Reports dizziness, Reports headache(s) and Denies focal weakness PMFSH Past Medical History Medical History (Updated 08/23/22 @ 00:01 by Jayant Paredes) Asthma Depression with anxiety Diabetes mellitus [place] (hard of hearing) Hypertension Surgical History Surgical History (Updated 08/22/22 @ 22:24 by Polly Huertas MD) History of appendectomy History of partial hysterectomy Social History Social History (Updated 08/22/22 @ 22:26 by Polly Huertas MD) Smoking status: Current every day smoker Exam Const: General: no acute distress and alert Nutritional Appearance: well nourished Orientation/consciousness: patient oriented x3 HENMT: Face and sinus: normal facial exam Eyes: EOM: EOMs intact bilaterally Resp: Effort & Inspection: normal respiratory effort Auscultation: clear to auscultation bilaterally Cardio: Rate: regular rate Rhythm: regular rhythm Heart sounds: no murmurs GI: GI Palp: Yes Soft to palpation, No Tenderness to palpation present (GI), No Guarding due to palpation present (GI) and No Rigid due to palpation Auscultation: normal bowel sounds Skin: General skin exam: normal color Rashes: no rashes Wounds: no wounds Neuro: General: patient oriented x3, moves all extremities and CN's II-XI intact bilaterally Extrem: General: normal to inspection Psych: Mental Status: mental status grossly normal Affect: normal affect Attitude: cooperative Course Reevaluation(s) Reevaluation #1: Patient denies any nausea, vomiting or pain. It sounds like she did not have emesis with ally blood. PAtient has not had any stool in ER and she denies melena. Hemoglobin is stable. I reviewed CT with patient showing constipation and possible soft tissue mass in colon in which she will need colonoscopy. I have discussed with patient that she will need to call operational risk manager or PCP For referral to one to get this evaluation. She is able to eat sandwhich and drink fluids without any symptoms. She is stable for discharge home. Date: 08/22/22 Time: 22:26 Vital Signs Vital signs: Vital Signs Temperature 97.8 F 08/22/22 19:54 Pulse Rate 89 08/22/22 19:54 Respiratory Rate 20 08/22/22 19:54 Blood Pressure 166/106 H 08/22/22 19:54 O
[2022-08-22] MEDS: PANTOPRAZOLE SODIUM IV 40 MG VIAL IV PUSH (20:16)
[2022-08-22] MEDS: DEXTROSE 50% 25 GM/50 ML SYRINGE IV PUSH (20:16)
[2022-08-22] MEDS: ONDANSETRON INJ 4 MG/2 ML VIAL IV PUSH (20:16)
[2022-08-22 20:23] LABS: Basophils Percent Auto 0.3 % (0.2-1.2); Eosinophils Absolute Auto 0.2 K/mm3 (0-0.3); Eosinophils Percent Auto 1.2 % (0-4.4); Hematocrit 39.3 % (37.0-47.0); Hemoglobin 13.2 g/dL (12.0-15.0); Immature Granulocyte Absolute 0.04 K/mm3 (0.00-0.031); Immature Granulocyte Percent A 0.3 % (0-0.5); Lymphocytes Absolute Auto 2.16 K/mm3 (0.9-3.2); Mean Corpuscular HGB Conc 33.6 g/dl (32-36); Mean Corpuscular Hemoglobin 31.3 pg (26-34); Mean Corpuscular Volume 93.1 fl (80-100); Mean Platelet Volume 9.3 fl (7.4-10.4); Monocytes Absolute Auto 0.9 K/mm3 (0.1-0.6); Monocytes Percent Auto 7.3 % (2.6-8.5); Neutrophils Absolute Auto 9.4 K/mm3 (1.3-6.7); Neutrophils Percent Auto 73.9 % (45.5-73.1); Platelet Count Result 265 k/mm3 (150-375); Red Blood Count 4.22 M/mm3 (4.2-5.4); Red Cell Distribution Width 15.9 % (11.5-14.5); White Blood Count 12.7 K/mm3 (4.5-10.0)
[2022-08-22 20:37] LABS: Partial Thromboplastin Time 27.5 SECONDS (22.3-36.8); Prothrombin Time 12.9 Seconds (11.1-14.7)
[2022-08-22 20:39] LABS: Alanine Aminotransferase 16 U/L (6-35); Albumin Level 4.1 g/dL (3.5-5.1); Alkaline Phosphatase 122 U/L (38-126); Anion Gap 10 mmol/L (8-16); Aspartate Amino Transferase 22 U/L (14-36); Bilirubin,Total 0.2 mg/dL (0.2-1.3); Blood Urea Nitrogen 11 mg/dL (7-17); Calcium 10.5 mg/dL (8.4-10.2); Carbon Dioxide 27 mmol/L (22-30); Chloride 103 mmol/L (98-107); Estimated CRCL calculation 82 ml/min; Estimated Glomerular Filt Rate > 60; Glucose 75 mg/dL (65-110); Lipase 49 U/L (23-300); Potassium 3.9 mmol/L (3.4-5.0); Sodium 140 mmol/L (137-145)
[2022-08-22 20:48] LABS: Glucose Point of Care 163 mg/dl (65-105)
--- NOTE | 2022-08-22 21:45 | PC.NURSE ---
Called pharmacy and spoke with Diego and will send Gabapentin up
[2022-08-22] MEDS: GABAPENTIN 300 MG CAPSULE PO (21:57)
[2022-08-22 22:06] LABS: Appearance Urine Clear (Clear); Bilirubin Urine Negative (Negative); Blood Urine Negative (Negative); Color Urine Yellow (Yellow); Glucose Urine UA Trace mg/dL (Negative); Ketones Urine Negative (Negative); Leukocyte Esterase Ur Negative LEU/UL (Negative); Nitrate Urine Negative (Negative); Protein Urine Negative (Negative); Urobilinogen Urine 0.2 mg/dL (<2.0)
[2022-08-22 22:15] LABS: Add Urine Microscopic? YES; Bacteria Urine Trace /hpf; Mucus Urine Rare /lpf; RBC Urine 0-2 /hpf (0-2); Squamous Epithelial Cell Urine Few /hpf (Few); WBC Urine 0-3 /hpf
--- NOTE | 2022-08-22 22:26 | PC.NURSE ---
Notified Dr Huertas pt consumed whole sandwich, chips, and water provided with no complaints
== END 2022-08-22 22:45 | disposition home or self-care (01) ==
PROVIDERS: Emergency Provider General Practice; PCP Family Medicine
DX: R11.2 Nausea with vomiting, unspecified (principal); K59.00 Constipation, unspecified; K63.89 Other specified diseases of intestine; J45.909 Unspecified asthma, uncomplicated; E11.9 Type 2 diabetes mellitus without complications; I10 Essential (primary) hypertension; F17.200 Nicotine dependence, unspecified, uncomplicated; Z90.710 Acquired absence of both cervix and uterus; K76.0 Fatty (change of) liver, not elsewhere classified; K43.9 Ventral hernia without obstruction or gangrene; K44.9 Diaphragmatic hernia without obstruction or gangrene; Z79.84 Long term (current) use of oral hypoglycemic drugs
CPT/HCPCS: 36415; 74177; 80053; 81001; 82948; 83690; 85025; 85610; 85730; 86850; 86900; 86901; 93005; 96374; 96375; 99284; A9270; C9113; J2405; Q9967

== ENCOUNTER 2022-09-18 00:26 | Day surgery (SDC) | payer MEDICARE, MEDICAID, SELFPAY ==
--- NOTE | 2022-09-03 13:48 | PC.NURSE ---
Attempted to contact pt. Voicemail full. Contacted pt. sister, Madonna, and attempted to obtain as much information as possible. Madonna states that her sister is VERY hard of hearing. Instructed to call pt. at [facility] and try to speak with her. mamohsen left with Nursing processing supervisor stating the need for information regarding their resident, Nancie Verma. Will wait for a return call.
[2022-09-05 15:56] VITALS: BMI 33.7
--- NOTE | 2022-09-18 12:16 | PM.HPGS ---
History of Present Illness History of Present Illness Consent: Risks, benefits, and alternatives have been discussed and questions answered. Patient agrees to proceed with procedure. Chief complaint: abnormal xray, abdominal mass and swelling Narrative: Nancie Verma is a 67 year old female For because of an abnormal CT scan. She was in the emergency room a few weeks ago with abdominal pain nausea and vomiting. CT scan was done which showed: IMPRESSION:? Cannot exclude soft tissue malignant mass of mid sigmoid colon; if the patient has not had recent barium enema or colonoscopy, colon workup is recommended Small sliding hiatal hernia Hepatic steatosis Status post hysterectomy Multiple fat-containing ventral abdominal wall hernias Degenerative changes of the lumbar spine Review of Systems Review of Systems: All systems reviewed & are unremarkable except as noted in HPI and below PMFSH Past Medical History Medical History Asthma Asthma Depression with anxiety Depression with anxiety Diabetes mellitus Diabetes mellitus Hard of hearing Bilateral hearing aid [place] (hard of hearing) Hypertension Hypertension Ruptured appendix Surgical History Surgical History History of appendectomy History of incision and drainage To her sacral area History of partial hysterectomy History of partial hysterectomy Family History Family History Father Malignant neoplasm of prostate Mother Diabetes mellitus Social History Social History Social History: The patient lives with her fiance. She has no children. She is on disability. She desires to be a full code and her fiance is her durable power claims attorney for healthcare and also her sister. The patient stated that she does drink vodka occasionally and smokes occasional marijuana. She stated the last time she drink was last night which she had a little bit of vodka and took a hit off of the joint. Smoking packs per day: 0.5 Smoking cigarettes per day: 10.0 Years smoked: 40 Smoking pack-years: 20.00 Smoking status: Current every day smoker Tobacco type: cigarettes Second hand tobacco smoke exposure: No Alcohol intake: former Substance use: never Substance use type: does not use Living arrangements: assisted living Additional living arrangements comments: [facility] Gender identity (if verbalized by the patient): Female Spiritual care concerns: No Meds Home Medications and Allergies Home Medications Medication Instructions Recorded Confirmed Type albuterol sulfate 90 mcg/actuation 2 puff inhalation Q6H PRN 04/19/20 09/05/22 History aerosol inhaler (Ventolin HFA) Shortness Of Breath brexpiprazole 1 mg tablet (Rexulti) 1 mg PO DAILY 04/19/20 09/18/22 History budesonide-formoterol HFA 160 2 puff inhalation Q12H 04/19/20 09/18/22 History mcg-4.5 mcg/actuation aerosol inhaler (Symbicort) ergocalciferol (vitamin D2) 1,250 50,000 unit PO WEEKLY 04/19/20 09/05/22 History mcg (50,000 unit) capsule fluticasone propionate 50 2 spray intranasal DAILY 04/19/20 09/18/22 History mcg/actuation nasal spray,suspension meloxicam 15 mg tablet 15 mg PO DAILY 04/19/20 09/18/22 History metformin 1,000 mg tablet 1,000 mg PO BID 04/19/20 09/18/22 History montelukast 10 mg tablet 10 mg PO HS 04/19/20 09/18/22 History tramadol 50 mg tablet 50 - 100 mg PO Q6H PRN Pain 04/19/20 09/05/22 History verapamil 120 mg tablet,extended 120 mg PO DAILY 04/19/20 09/18/22 History release diphenhydramine HCl 25 mg capsule 25 mg PO TID PRN allergic reaction 04/21/20 09/05/22 Rx (Benadryl) #30 caps famotidine 20 mg tablet (Pepcid) 20 mg PO BID #30 tabs 04/21/20 09/18/22 Rx polyethylene glycol 3350 17 17 g PO DAILY #119 grams 08/22/22 09/18/22 Rx
[2022-09-18 12:19] VITALS: BP 129/115; PULSE 94; RESP 22; TEMP 36.4; O2SAT 99; BMI 32.1
[2022-09-18] MEDS: LACTATED RINGERS 1,000 ML 150 ML IV CONT (12:23)
--- NOTE | 2022-09-18 12:28 | WPDANESEPPF ---
Anes - Initial Pre Proc Eval Procedure: Operation Date: 09/18/22 13:30 Proposed Procedures p Colonoscopy - Vj Gillis MD Date/Time: 09/18/22 12:28 Surgeon: Vj Gillis MD Pre Op Diagnosis: abnormal xray, abdominal mass and swelling Patient Data Age: 67 Gender: F Height: 1.6 m Weight: 82.4 kg Last Vital Signs Temp 36.4 C L 09/18/22 12:19 Pulse 94 09/18/22 12:19 Resp 22 H 09/18/22 12:19 BP 129/115 H 09/18/22 12:19 Pulse Ox 99 09/18/22 12:19 O2 Del Method Room Air 09/18/22 12:19 Allergies Allergy/AdvReac Type Severity Reaction Status Date / Time escitalopram AdvReac Intermediate Swelling Verified 09/18/22 12:16 of Lip/Tongue/Throat lisinopril AdvReac Intermediate Swelling Verified 09/18/22 12:16 of Lip/Tongue/Throat ampicillin AdvReac Mild yeast Verified 09/18/22 12:16 infection Penicillins AdvReac Unknown Verified 09/18/22 12:16 Home Medications Medication Instructions Recorded Confirmed Type albuterol sulfate 90 mcg/actuation 2 puff inhalation Q6H PRN 04/19/20 09/05/22 History aerosol inhaler (Ventolin HFA) Shortness Of Breath brexpiprazole 1 mg tablet (Rexulti) 1 mg PO DAILY 04/19/20 09/18/22 History budesonide-formoterol HFA 160 2 puff inhalation Q12H 04/19/20 09/18/22 History mcg-4.5 mcg/actuation aerosol inhaler (Symbicort) ergocalciferol (vitamin D2) 1,250 50,000 unit PO WEEKLY 04/19/20 09/05/22 History mcg (50,000 unit) capsule fluticasone propionate 50 2 spray intranasal DAILY 04/19/20 09/18/22 History mcg/actuation nasal spray,suspension meloxicam 15 mg tablet 15 mg PO DAILY 04/19/20 09/18/22 History metformin 1,000 mg tablet 1,000 mg PO BID 04/19/20 09/18/22 History montelukast 10 mg tablet 10 mg PO HS 04/19/20 09/18/22 History tramadol 50 mg tablet 50 - 100 mg PO Q6H PRN Pain 04/19/20 09/05/22 History verapamil 120 mg tablet,extended 120 mg PO DAILY 04/19/20 09/18/22 History release diphenhydramine HCl 25 mg capsule 25 mg PO TID PRN allergic reaction 04/21/20 09/05/22 Rx (Benadryl) #30 caps famotidine 20 mg tablet (Pepcid) 20 mg PO BID #30 tabs 04/21/20 09/18/22 Rx polyethylene glycol 3350 17 17 g PO DAILY #119 grams 08/22/22 09/18/22 Rx gram/dose oral powder (Miralax) alprazolam 0.5 mg tablet 0.5 mg PO BID PRN Anxiety 09/05/22 09/18/22 History carbamide peroxide 6.5 % ear drops 5 drp EACH EAR Q12H PRN other 09/05/22 09/18/22 History (Debrox) cyclobenzaprine 5 mg tablet 5 mg PO TID PRN Muscle Spasm 09/05/22 09/05/22 History epinephrine 0.3 mg/0.3 mL 0.3 mg subcut PRN PRN anaphylaxis 09/05/22 09/05/22 History injection, auto-injector gabapentin 400 mg capsule 400 mg PO TID 09/05/22 09/18/22 History meclizine 25 mg tablet 25 mg PO TID PRN Dizziness 09/05/22 09/05/22 History mupirocin 2 % topical ointment 1 applic topical BID PRN other 09/05/22 09/18/22 History ondansetron 8 mg disintegrating 8 mg PO TID PRN Nausea 09/05/22 09/05/22 History tablet oxybutynin chloride 10 mg 10 mg PO DAILY 09/05/22 09/18/22 History tablet,extended release 24 hr Patient hx anesthesia problems: none Family hx anesthesia problems: none Results Review: All pre-operative results and documents have been reviewed as part of the pre-operative evaluation. [facility] Past Medical History Medical History (Updated 09/18/22 @ 12:17 by Vj Gillis MD) Asthma Asthma Depression with anxiety Depression with anxiety Diabetes mellitus Diabetes mellitus Hard of hearing Bilateral hearing aid [place] (hard of hearing) Hypertension Hypertension Ruptured appendix Surgical History Surgical History (Updated 08/25/22 @ 15:28 by Noman Zelaya) History of appendectomy History of incision and drainage To her sacral area History of partial hysterectomy History of partial hysterectomy Family History Family History (System 08/25/22 @ 15:28 by Noman Zelaya) Father Malignant neoplasm of prostate Mother Diabetes mellit
[2022-09-18 13:56] VITALS: BP 105/60; PULSE 80; RESP 25; O2SAT 93
[2022-09-18 14:06] VITALS: BP 120/75; PULSE 78; RESP 23; O2SAT 95
[2022-09-18 14:16] VITALS: BP 148/82; PULSE 84; RESP 20; O2SAT 95
== END 2022-09-18 14:35 | disposition home or self-care (01) ==
PROVIDERS: PCP Family Medicine; Visit Provider Internal Medicine Gastroenterology
PROC: 0DJD8ZZ Inspection of Lower Intestinal Tract, Via Natural or Artificial Opening Endoscopic (ICD-10-PCS; CPT 45378; principal; 2022-09-18 13:30)
DX: D12.5 Benign neoplasm of sigmoid colon (principal); K64.8 Other hemorrhoids; R93.3 Abnormal findings on diagnostic imaging of other parts of digestive tract; K44.9 Diaphragmatic hernia without obstruction or gangrene; K76.0 Fatty (change of) liver, not elsewhere classified; K43.9 Ventral hernia without obstruction or gangrene; F41.8 Other specified anxiety disorders; E11.9 Type 2 diabetes mellitus without complications; I10 Essential (primary) hypertension; Z80.42 Family history of malignant neoplasm of prostate; Z83.3 Family history of diabetes mellitus; F17.210 Nicotine dependence, cigarettes, uncomplicated; F12.90 Cannabis use, unspecified, uncomplicated; Z79.51 Long term (current) use of inhaled steroids; Z79.84 Long term (current) use of oral hypoglycemic drugs; Z79.891 Long term (current) use of opiate analgesic; Z79.899 Other long term (current) drug therapy
CPT/HCPCS: 45385; 45381; 88305; J2704; J7120

== ENCOUNTER 2023-03-11 09:11 | Emergency (ER) | payer MEDICARE, MEDICAID, SELFPAY ==
--- NOTE | ~2023-03-11 | XR_ITS ---
EXAMINATION: XR foot LT min 3V DATE: 03/11/2023 14:06 INDICATION: Left foot pain. Fall. TECHNIQUE: 4 views of left foot were obtained. COMPARISON: None. FINDINGS: Bone alignment is normal. There is an oblique fracture of distal fibula. There is mild oste oarthritis of first metatarsophalangeal joint. There are enthesophytes at the posterior and plantar a spects of calcaneal tuberosity. IMPRESSION: 1. Oblique fracture of distal fibula. Reviewed, dictated and finalized at [facility].
--- NOTE | ~2023-03-11 | XR_ITS ---
EXAMINATION: XR ankle LT min 3V DATE: 03/11/2023 11:39 INDICATION: Left ankle pain post fall TECHNIQUE: Anteroposterior, oblique, mortise, and lateral views of the left ankle were obtained. COMPARISON: None. FINDINGS: There is an oblique fracture through the distal fibula with a fracture plane exiting medially at the level of the tibiotalar joint. There is one cortical width posterolateral displacement. No other fra cture identified. Specifically the medial and posterior malleoli as well as the talar dome are intac t. Ankle mortise remains congruent. Large plantar calcaneal spur and tiny enthesopathic ossicles at the distal Achilles tendon and proximal plantar aponeurosis. Soft tissue swelling overlying the later al malleolus. No ankle joint effusion. IMPRESSION: 1. [Minimally displaced oblique fracture of the distal left fibula consistent with a Ying type B inj ury pattern. IMPRESSION: 1. Reviewed, dictated and finalized at [facility]. IMPRESSION: 1. [Minimally displaced oblique fracture of the distal left fibula consistent w ith a Ying type B injury pattern. IMPRESSION: 1.
[2023-03-11 09:19] VITALS: BP 128/80; PULSE 97; RESP 18; TEMP 36.9; O2SAT 97
[2023-03-11 09:29] LABS: Glucose Point of Care 92 mg/dl (65-105)
--- NOTE | 2023-03-11 13:50 | ED.LOWEXIN ---
HPI - Extremity Injury (Lower) General Chief Complaint: Extremity Injury, Lower <Emely Lynch PA-C - Last Filed: 03/11/23 19:33> Stated Complaint: fell last noc after ETOH, L ankle pain <Emely Lynch PA-C - Last Filed: 03/11/23 19:33> Time Seen by Provider: 03/11/23 11:45 <Emely Lynch PA-C - Last Filed: 03/11/23 19:33> History of Present Illness HPI Narrative: 68 y/o F reports via EMS from assisted living with a history of HTN, asthma and DM for evaluation of L ankle and foot pain x2 days. Pt states 2 days ago, she had 3-4 drinks to celebrate with her birthday with a friend who is her neighbor in assisted living. States she was walking back to her room with her walker and tripped, causing her to twist her ankle. States she did not fall to the ground, did not hit her head, no LOC. Denies chest pain, SOB, focal numbness or weakness, vision changes. States she continued to walk back to her room and has been ambulating with her walker since the injury. Denies other acquired injuries, paresthesias, fever. <Emely Lynch PA-C - Last Filed: 03/11/23 19:33> Related Data Home Medications: Home Medications Medication Instructions Recorded Confirmed albuterol sulfate 90 mcg/actuation 2 puff inhalation Q6H PRN 04/19/20 09/05/22 aerosol inhaler (Ventolin HFA) Shortness Of Breath brexpiprazole 1 mg tablet (Rexulti) 1 mg PO DAILY 04/19/20 09/18/22 budesonide-formoterol HFA 160 2 puff inhalation Q12H 04/19/20 09/18/22 mcg-4.5 mcg/actuation aerosol inhaler (Symbicort) ergocalciferol (vitamin D2) 1,250 50,000 unit PO WEEKLY 04/19/20 09/05/22 mcg (50,000 unit) capsule fluticasone propionate 50 2 spray intranasal DAILY 04/19/20 09/18/22 mcg/actuation nasal spray,suspension meloxicam 15 mg tablet 15 mg PO DAILY 04/19/20 09/18/22 metformin 1,000 mg tablet 1,000 mg PO BID 04/19/20 09/18/22 montelukast 10 mg tablet 10 mg PO HS 04/19/20 09/18/22 tramadol 50 mg tablet 50 - 100 mg PO Q6H PRN Pain 04/19/20 09/05/22 verapamil 120 mg tablet,extended 120 mg PO DAILY 04/19/20 09/18/22 release alprazolam 0.5 mg tablet 0.5 mg PO BID PRN Anxiety 09/05/22 09/18/22 carbamide peroxide 6.5 % ear drops 5 drp EACH EAR Q12H PRN other 09/05/22 09/18/22 (Debrox) cyclobenzaprine 5 mg tablet 5 mg PO TID PRN Muscle Spasm 09/05/22 09/05/22 epinephrine 0.3 mg/0.3 mL 0.3 mg subcut PRN PRN anaphylaxis 09/05/22 09/05/22 injection, auto-injector gabapentin 400 mg capsule 400 mg PO TID 09/05/22 09/18/22 meclizine 25 mg tablet 25 mg PO TID PRN Dizziness 09/05/22 09/05/22 mupirocin 2 % topical ointment 1 applic topical BID PRN other 09/05/22 09/18/22 ondansetron 8 mg disintegrating 8 mg PO TID PRN Nausea 09/05/22 09/05/22 tablet oxybutynin chloride 10 mg 10 mg PO DAILY 09/05/22 09/18/22 tablet,extended release 24 hr <Emely Lynch PA-C - Last Filed: 03/11/23 19:33> Allergies/Adverse Reactions: Allergies Allergy/AdvReac Type Severity Reaction Status Date / Time escitalopram AdvReac Intermediate Swelling Verified 09/18/22 12:16 of Lip/Tongue/Throat lisinopril AdvReac Intermediate Swelling Verified 09/18/22 12:16 of Lip/Tongue/Throat ampicillin AdvReac Mild yeast Verified 09/18/22 12:16 infection Penicillins AdvReac Unknown Verified 09/18/22 12:16 <Emely Lynch PA-C - Last Filed: 03/11/23 19:33> Review of Systems Review of Systems: CONSTITUTIONAL: Denies fever, chills EYES: Denies visual changes, redness, or discharge. ENT: Denies rhinorrhea, congestion, sore throat, or otalgia. CARDIOVASCULAR: Denies chest pain, palpitations, or edema. RESPIRATORY: Denies cough or dyspnea. GASTROINTESTINAL: Denies abdominal pain, nausea, vomiting, or diarrhea. GENITOURINARY: Denies dysuria or hematuria. SKIN: Denies rash or itching. MUSCULOSKELETAL: See HPI NEUROLOGIC: Denies headache, numbness, dizziness, or weakness. PSYCHIATRIC: Denies anxiety or depression. <Sof
[2023-03-11] MEDS: ACETAMINOPHEN 500 MG TABLET 1000 MG PO (14:24)
== END 2023-03-11 15:02 ==
PROVIDERS: Emergency Provider Physician Assistant; PCP Family Medicine
DX: S82.832A Other fracture of upper and lower end of left fibula, initial encounter for closed fracture (principal); I10 Essential (primary) hypertension; J45.909 Unspecified asthma, uncomplicated; E11.9 Type 2 diabetes mellitus without complications; F41.8 Other specified anxiety disorders; Z90.711 Acquired absence of uterus with remaining cervical stump; Z79.84 Long term (current) use of oral hypoglycemic drugs; W18.49XA Other slipping, tripping and stumbling without falling, initial encounter
CPT/HCPCS: 29515; 73610; 73630; 82948; 99284; A9270

== ENCOUNTER 2023-12-15 09:43 | Outpatient (CLI) | payer MEDICARE, MEDICAID, SELFPAY | END 2023-12-15 09:44 | disposition home or self-care (01) | LOC: ANHAUDIO 09:44 | PROVIDERS: PCP Family Medicine; Visit Provider Physician Assistant | DX: H91.93 Unspecified hearing loss, bilateral (principal) | CPT/HCPCS: 99199 ==

== ENCOUNTER 2024-03-13 19:53 | Emergency (ER) | payer MEDICARE, MEDICAID, SELFPAY ==
[2024-03-13] VITALS (22 sets, daily range): BP systolic 126–142; BP diastolic 80–96; PULSE 83–94; RESP 14–22; TEMP 36.6; O2SAT 98–100
--- NOTE | ~2024-03-13 | XR_ITS ---
XR chest 2V 03/13/2024 20:25 Indication: Chest tightness Procedure: 2 view chest Comparison: Comparison to multiple prior studies sequentially, with oldest reviewed study dated 07/19. Findings: Heart size normal. No focal air space disease, pulmonary edema, pleural effusion or suspect ed pneumothorax. Impression: 1: No acute cardiopulmonary disease. Reviewed, dictated and finalized at location A. Impression: 1: No acute cardiopulmonary disease.
--- NOTE | 2024-03-13 20:00 | ECG_ITS ---
SEE SCANNED COPY FOR CONFIRMED REPORT MTDD
[2024-03-13 20:16] LABS: Basophils Percent Auto 0.2 % (0.2-1.2); Eosinophils Absolute Auto 0.1 K/mm3 (0-0.3); Eosinophils Percent Auto 0.8 % (0-4.4); Hematocrit 39.8 % (37.0-47.0); Hemoglobin 13.2 g/dL (12.0-15.0); Immature Granulocyte Percent A 0.6 % (0-0.5); Lymphocytes Absolute Auto 2.86 K/mm3 (0.9-3.2); Lymphocytes Percent Auto 18.5 % (18.3-44.2); Mean Corpuscular HGB Conc 33.2 g/dl (32-36); Mean Corpuscular Hemoglobin 31.7 pg (26-34); Mean Corpuscular Volume 95.4 fl (80-100); Mean Platelet Volume 9.1 fl (7.4-10.4); Monocytes Absolute Auto 1.6 K/mm3 (0.1-0.6); Monocytes Percent Auto 10.2 % (2.6-8.5); Neutrophils Absolute Auto 10.7 K/mm3 (1.3-6.7); Neutrophils Percent Auto 69.7 % (45.5-73.1); Platelet Count Result 307 k/mm3 (150-375); Red Blood Count 4.17 M/mm3 (4.2-5.4); Red Cell Distribution Width 14.8 % (11.5-14.5); White Blood Count 15.4 K/mm3 (4.5-10.0)
[2024-03-13 20:37] LABS: Partial Thromboplastin Time 29.2 Seconds (22.3-36.8); Prothrombin Time 13.1 Seconds (11.1-14.7)
[2024-03-13] MEDS: ASPIRIN 81 MG CHEWABLE TABLET 324 MG PO (20:40)
[2024-03-13 20:51] LABS: Alanine Aminotransferase 14 U/L (6-35); Albumin Level 4.4 g/dL (3.5-5.1); Alkaline Phosphatase 149 U/L (38-126); Anion Gap 5 mmol/L (4-12); Aspartate Amino Transferase 30 U/L (14-36); Bilirubin,Total 0.5 mg/dL (0.2-1.3); Blood Urea Nitrogen 15 mg/dL (7-17); Calcium 11.4 mg/dL (8.4-10.2); Carbon Dioxide 26 mmol/L (22-30); Chloride 101 mmol/L (98-107); Estimated CRCL calculation 37 ml/min; Estimated Glomerular Filt Rate 45; Glucose 95 mg/dL (65-110); Lipase 119 U/L (23-300); Potassium 4.3 mmol/L (3.4-5.0); Sodium 132 mmol/L (137-145)
[2024-03-13 21:00] LABS: Troponin I < 0.012 ng/mL (0.000-0.034)
--- NOTE | 2024-03-13 21:26 | ED.CHESTPAIN ---
HPI - Chest Pain General Chief Complaint: Chest Pain Stated Complaint: chest tightness Time Seen by Provider: 03/13/24 20:32 Source: patient Limitations: no limitations History of Present Illness HPI narrative: Patient is a 69-year-old female presents to the emergency department complaining of a funny sensation in her chest. Patient unable to describe the sensation other than it feels like she is having a heart attack and it has been coming and going in the middle of her chest for the past 4 days, has not noticed anything that brings it on or makes ago way, denies any history of sensation in the past, states that she feels it could be her having a heart attack with denies any history of heart disease. Patient denies any family history of heart disease at a young age. Patient admits to being a smoker. Patient denies history of high blood pressure or high cholesterol. Patient admits to associated shortness of breath. Patient denies abdominal pain, nausea, vomiting, palpitations, numbness, weakness, recent injuries, recent illness, history of blood clots, unilateral lower extremity swelling, fever. Patient admits to a slight cough with sputum production. Related Data Home Medications Medication Instructions Recorded Confirmed albuterol sulfate 90 mcg/actuation 2 puff inhalation Q6H PRN 04/19/20 09/05/22 aerosol inhaler (Ventolin HFA) Shortness Of Breath brexpiprazole 1 mg tablet (Rexulti) 1 mg PO DAILY 04/19/20 09/18/22 budesonide-formoterol HFA 160 2 puff inhalation Q12H 04/19/20 09/18/22 mcg-4.5 mcg/actuation aerosol inhaler (Symbicort) ergocalciferol (vitamin D2) 1,250 50,000 unit PO WEEKLY 04/19/20 09/05/22 mcg (50,000 unit) capsule fluticasone propionate 50 2 spray intranasal DAILY 04/19/20 09/18/22 mcg/actuation nasal spray,suspension meloxicam 15 mg tablet 15 mg PO DAILY 04/19/20 09/18/22 metformin 1,000 mg tablet 1,000 mg PO BID 04/19/20 09/18/22 montelukast 10 mg tablet 10 mg PO HS 04/19/20 09/18/22 tramadol 50 mg tablet 50 - 100 mg PO Q6H PRN Pain 04/19/20 09/05/22 verapamil 120 mg tablet,extended 120 mg PO DAILY 04/19/20 09/18/22 release alprazolam 0.5 mg tablet 0.5 mg PO BID PRN Anxiety 09/05/22 09/18/22 carbamide peroxide 6.5 % ear drops 5 drp EACH EAR Q12H PRN other 09/05/22 09/18/22 (Debrox) cyclobenzaprine 5 mg tablet 5 mg PO TID PRN Muscle Spasm 09/05/22 09/05/22 epinephrine 0.3 mg/0.3 mL 0.3 mg subcut PRN PRN anaphylaxis 09/05/22 09/05/22 injection, auto-injector gabapentin 400 mg capsule 400 mg PO TID 09/05/22 09/18/22 meclizine 25 mg tablet 25 mg PO TID PRN Dizziness 09/05/22 09/05/22 mupirocin 2 % topical ointment 1 applic topical BID PRN other 09/05/22 09/18/22 ondansetron 8 mg disintegrating 8 mg PO TID PRN Nausea 09/05/22 09/05/22 tablet oxybutynin chloride 10 mg 10 mg PO DAILY 09/05/22 09/18/22 tablet,extended release 24 hr Allergies Allergy/AdvReac Type Severity Reaction Status Date / Time escitalopram AdvReac Intermediate Swelling Verified 04/02/23 11:47 of Lip/Tongue/Throat lisinopril AdvReac Intermediate Swelling Verified 04/02/23 11:47 of Lip/Tongue/Throat ampicillin AdvReac Mild yeast Verified 04/02/23 11:47 infection Penicillins AdvReac Unknown Verified 04/02/23 11:47 Review of Systems Review of Systems: All systems reviewed & are unremarkable except as noted in HPI and below PMFSH Past Medical History Medical History Asthma Asthma Depression with anxiety Depression with anxiety Diabetes mellitus Diabetes mellitus Hard of hearing Bilateral hearing aid [place] (hard of hearing) Hypertension Hypertension Ruptured appendix Surgical History Surgical History History of appendectomy History of incision and drainage To her sacral area History of partial hysterectomy History of partial hysterectomy Family History Family H
[2024-03-13] MEDS: FAMOTIDINE 20 MG/2 ML VIAL IV PUSH (22:14)
[2024-03-13 23:09] LABS: D Dimer 0.34 ug/mL (<0.48)
[2024-03-13 23:31] LABS: Troponin I < 0.012 ng/mL (0.000-0.034)
[2024-03-14] VITALS: O2SAT 99
[2024-03-14 00:01] VITALS: BP 125/81; O2SAT 99
[2024-03-14 00:31] VITALS: BP 132/83; RESP 19; O2SAT 100
[2024-03-14 00:43] VITALS: BP 132/83; PULSE 85; RESP 17; O2SAT 99
== END 2024-03-14 01:01 ==
PROVIDERS: Student in an Organized Health Care Education/Training Program; Emergency Provider Student in an Organized Health Care Education/Training Program; PCP Physician Assistant
DX: R07.9 Chest pain, unspecified (principal); S37.009A Unspecified injury of unspecified kidney, initial encounter; F17.210 Nicotine dependence, cigarettes, uncomplicated; J45.909 Unspecified asthma, uncomplicated; F32.A Depression, unspecified; E11.9 Type 2 diabetes mellitus without complications; I10 Essential (primary) hypertension; X58.XXXA Exposure to other specified factors, initial encounter
CPT/HCPCS: 36415; 71046; 80053; 83690; 84484; 85025; 85380; 85610; 85730; 93005; 96374; 99284; A9270

== ENCOUNTER 2024-08-27 18:38 | Emergency (ER) | payer MEDICARE, MEDICAID, SELFPAY ==
[2024-08-27 18:40] VITALS: BP 138/82; PULSE 104; RESP 15; TEMP 36.6; O2SAT 99
[2024-08-27] MEDS: HYDROGEN PEROXIDE 3% SOLN(*SP) 473 ML BOTTLE (19:03)
--- NOTE | 2024-08-27 19:03 | ED.GENADULT ---
HPI - General Adult General Chief complaint: Ear Stated complaint: spider in ear Time Seen by Provider: 08/27/24 18:38 History of Present Illness HPI narrative: 69-year-old female presents to the emergency department for evaluation for a sensation of a bug in her left ear. patient arrived by EMS. Related Data Home Medications Medication Instructions Recorded Confirmed albuterol sulfate 90 mcg/actuation 2 puff inhalation Q6H PRN 04/19/20 09/05/22 aerosol inhaler (Ventolin HFA) Shortness Of Breath brexpiprazole 1 mg tablet (Rexulti) 1 mg PO DAILY 04/19/20 09/18/22 budesonide-formoterol HFA 160 2 puff inhalation Q12H 04/19/20 09/18/22 mcg-4.5 mcg/actuation aerosol inhaler (Symbicort) ergocalciferol (vitamin D2) 1,250 50,000 unit PO WEEKLY 04/19/20 09/05/22 mcg (50,000 unit) capsule fluticasone propionate 50 2 spray intranasal DAILY 04/19/20 09/18/22 mcg/actuation nasal spray,suspension meloxicam 15 mg tablet 15 mg PO DAILY 04/19/20 09/18/22 metformin 1,000 mg tablet 1,000 mg PO BID 04/19/20 09/18/22 montelukast 10 mg tablet 10 mg PO HS 04/19/20 09/18/22 tramadol 50 mg tablet 50 - 100 mg PO Q6H PRN Pain 04/19/20 09/05/22 verapamil 120 mg tablet,extended 120 mg PO DAILY 04/19/20 09/18/22 release alprazolam 0.5 mg tablet 0.5 mg PO BID PRN Anxiety 09/05/22 09/18/22 carbamide peroxide 6.5 % ear drops 5 drp EACH EAR Q12H PRN other 09/05/22 09/18/22 (Debrox) cyclobenzaprine 5 mg tablet 5 mg PO TID PRN Muscle Spasm 09/05/22 09/05/22 epinephrine 0.3 mg/0.3 mL 0.3 mg subcut PRN PRN anaphylaxis 09/05/22 09/05/22 injection, auto-injector gabapentin 400 mg capsule 400 mg PO TID 09/05/22 09/18/22 meclizine 25 mg tablet 25 mg PO TID PRN Dizziness 09/05/22 09/05/22 mupirocin 2 % topical ointment 1 applic topical BID PRN other 09/05/22 09/18/22 ondansetron 8 mg disintegrating 8 mg PO TID PRN Nausea 09/05/22 09/05/22 tablet oxybutynin chloride 10 mg 10 mg PO DAILY 09/05/22 09/18/22 tablet,extended release 24 hr Allergies Allergy/AdvReac Type Severity Reaction Status Date / Time escitalopram AdvReac Intermediate Swelling Verified 04/02/23 11:47 of Lip/Tongue/Throat lisinopril AdvReac Intermediate Swelling Verified 04/02/23 11:47 of Lip/Tongue/Throat ampicillin AdvReac Mild yeast Verified 04/02/23 11:47 infection Penicillins AdvReac Unknown Verified 04/02/23 11:47 Review of Systems Review of Systems: All systems reviewed & are unremarkable except as noted in HPI and below PMFSH Past Medical History Medical History Asthma Asthma Depression with anxiety Depression with anxiety Diabetes mellitus Diabetes mellitus Hard of hearing Bilateral hearing aid WIYOT (hard of hearing) Hypertension Hypertension Ruptured appendix Surgical History Surgical History History of appendectomy History of incision and drainage To her sacral area History of partial hysterectomy History of partial hysterectomy Family History Family History Father Malignant neoplasm of prostate Mother Diabetes mellitus Social History Social History Social History: The patient lives with her fiance. She has no children. She is on disability. She desires to be a full code and her fiance is her durable power commercial internship for healthcare and also her sister. The patient stated that she does drink vodka occasionally and smokes occasional marijuana. She stated the last time she drink was last night which she had a little bit of vodka and took a hit off of the joint. Smoking packs per day: 0.5 Smoking cigarettes per day: 10.0 Years smoked: 40 Smoking pack-years: 20.00 Smoking status: Current every day smoker Tobacco type: cigarettes Second hand tobacco smoke exposure: No Alcohol intake: former Substance use: never Substance use type: does not use Living arrangements: assisted living Additional living arrangements comments: [facility] Gender identity (if verbalized by the patient): Female Spiritual care concerns: No Exam Narrative: APPEARANCE: Well appearing, no pain, no distress, well-nourished. HEAD: normocephalic, atraumatic. EYES: PERRLA/EOMI, conjunctivae clear. NOSE: Normal no drainage EARS: cerumen impaction of left ear THROAT: Pharynx clear, no exudate. NECK: Supple. No adenopathy, no masses. RESPIRATORY: Airway patent, respirations nonlabored. Clear to auscultation bilaterally, no rales, rhonchi, wheezing. CARDIOVASCULAR: Regular rate and rhythm without murmurs rubs or gallops. ABDOMINAL: Soft, nontender, nondistended, normal bowel sounds MUSCULOSKELETAL: Moves all extremities. Strength/ROM intact, No edema, No calf tenderness. NEURO: Alert. Cranial nerves II through XII intact. Good gait. Good coordination SKIN: Warm, dry. Normal Color Course Vital Signs Vital signs: Vital Signs Temperature 97.8 F 08/27/24 18:40 Pulse Rate 104 H 08/27/24 18:40 Respiratory Rate 15 08/27/24 18:40 Blood Pressure 138/82 08/27/24 18:40 Pulse Oximetry 99 08/27/24 18:40 Oxygen Delivery Room Air 08/27/24 18:40 Temperature 97.8 F 08/27/24 18:40 Pulse Rate 104 H 08/27/24 18:40 Respiratory Rate 15 08/27/24 18:40 Blood Pressure 138/82 08/27/24 18:40 Pulse Oximetry 99 08/27/24 18:40 Oxygen Delivery Room Air 08/27/24 18:40 Medical Decision Making MDM Narrative Medical decision making narrative: 69-year-old female presenting to the emergency department for evaluation for evaluation of a sensation of a spider in her left ear. Patient had no foreign body but did have cerumen impaction. Cerumen impaction was cleared after irrigation. Differential Diagnosis Differential Diagnosis: Cerumen impaction, foreign body, otitis media, otitis externa Vital Signs Vital Signs: Vital Signs Temperature 97.8 F 08/27/24 18:40 Pulse Rate 104 H 08/27/24 18:40 Respiratory Rate 15 08/27/24 18:40 Blood Pressure 138/82 08/27/24 18:40 Pulse Oximetry 99 08/27/24 18:40 Oxygen Delivery Room Air 08/27/24 18:40 Temperature 97.8 F 08/27/24 18:40 Pulse Rate 104 H 08/27/24 18:40 Respiratory Rate 15 08/27/24 18:40 Blood Pressure 138/82 08/27/24 18:40 Pulse Oximetry 99 08/27/24 18:40 Oxygen Delivery Room Air 08/27/24 18:40 Discharge Plan Discharge Clinical Impression: Impacted cerumen Patient Disposition: Home, Self-Care Condition: Stable Instructions: Antibiotic Form, Carbamide Peroxide (Into the ear) Additional Instructions: have close follow-up with your primary care physician. If you have any worsening symptoms please call or return to the emergency department. Prescriptions: No Action verapamil 120 mg tablet extended release 120 mg PO DAILY meloxicam 15 mg tablet 15 mg PO DAILY tramadol 50 mg tablet 50 - 100 mg PO Q6H PRN (Reason: Pain) metformin 1,000 mg tablet 1,000 mg PO BID ergocalciferol (vitamin D2) 1,250 mcg (50,000 unit) capsule 50,000 unit PO WEEKLY Rx Instructions: pt takes on Thursday albuterol sulfate [Ventolin HFA] 90 mcg/actuation HFA aerosol inhaler 2 puff INHALATION Q6H PRN (Reason: Shortness Of Breath) fluticasone propionate 50 mcg/actuation spray,suspension 2 spray INTRANASAL DAILY budesonide-formoterol [Symbicort] 160-4.5 mcg/actuation HFA aerosol inhaler 2 puff INHALATION Q12H montelukast 10 mg tablet 10 mg PO HS Rexulti 1 mg tablet 1 mg PO DAILY famotidine [Pepcid] 20 mg tablet 20 mg PO BID Qty: 30 0RF diphenhydramine HCl [Benadryl] 25 mg capsule 25 mg PO TID PRN (Reason: allergic reaction) Qty: 30 0RF polyethylene glycol 3350 [Miralax] 17 gram/dose powder 17 g PO DAILY Qty: 119 0RF oxybutynin chloride 10 mg tablet extended release 24hr 10 mg PO DAILY gabapentin 400 mg capsule 400 mg PO TID ondansetron 8 mg tablet,disintegrating 8 mg PO TID PRN (Reason: Nausea) alprazolam 0.5 mg tablet 0.5 mg PO BID PRN (Reason: Anxiety) meclizine 25 mg tablet 25 mg PO TID PRN (Reason: Dizziness) Debrox 6.5 % Drops 5 drp EACH EAR Q12H PRN (Reason: other) mupirocin 2 % Ointment 1 applic TOPICAL BID PRN (Reason: other) epinephrine 0.3 mg/0.3 mL auto-injector 0.3 mg subcut PRN PRN (Reason: anaphylaxis) cyclobenzaprine 5 mg tablet 5 mg PO TID PRN (Reason: Muscle Spasm) acetaminophen 500 mg tablet 500 mg PO Q6H PRN (Reason: pain) Qty: 30 0RF famotidine 20 mg tablet 20 mg PO DAILY Qty: 14 0RF Follow-up/Referrals: Carlo,CORINNE Forbes [Primary Care Provider] -
[2024-08-27 19:57] VITALS: BP 130/84; PULSE 67; RESP 15; O2SAT 100
== END 2024-08-27 19:58 | disposition home or self-care (01) ==
PROVIDERS: Emergency Provider Emergency Medicine; PCP Physician Assistant
DX: H61.22 Impacted cerumen, left ear (principal); J45.909 Unspecified asthma, uncomplicated; I10 Essential (primary) hypertension; E11.9 Type 2 diabetes mellitus without complications; F41.8 Other specified anxiety disorders; F17.210 Nicotine dependence, cigarettes, uncomplicated; Z90.711 Acquired absence of uterus with remaining cervical stump; Z79.84 Long term (current) use of oral hypoglycemic drugs; Z79.899 Other long term (current) drug therapy
CPT/HCPCS: 69209; 99282; A9270

== ENCOUNTER 2024-09-26 12:10 | Outpatient (CLI) | payer MEDICARE, MEDICAID, SELFPAY ==
--- NOTE | ~2024-09-26 | US_ITS ---
EXAMINATION: US renal BI DATE: 09/26/2024 13:07 INDICATION: Acute kidney failure TECHNIQUE: Multiple ultrasound grayscale images of the kidneys were obtained. COMPARISON: CT dated 08/22/2022 FINDINGS: The right kidney measures 9.5 x 4.0 x 4.3 cm. The left kidney measures 9.7 x 5.7 x 4.5 cm. The kidney s demonstrate normal echogenicity. There is no hydronephrosis in either kidney. No stones identified . The bladder is normal. IMPRESSION: 1. Normal kidneys without hydronephrosis. Reviewed, dictated and finalized at location A. HING AIDE
== END 2024-09-26 12:11 | disposition home or self-care (01) ==
PROVIDERS: PCP Physician Assistant; Visit Provider Internal Medicine Nephrology
DX: N17.0 Acute kidney failure with tubular necrosis (principal); E83.52 Hypercalcemia; E87.1 Hypo-osmolality and hyponatremia; L73.2 Hidradenitis suppurativa; G93.40 Encephalopathy, unspecified; I12.9 Hypertensive chronic kidney disease with stage 1 through stage 4 chronic kidney disease, or unspecified chronic kidney disease; E11.22 Type 2 diabetes mellitus with diabetic chronic kidney disease; E78.00 Pure hypercholesterolemia, unspecified
CPT/HCPCS: 76775

== ENCOUNTER 2024-11-01 10:31 | Outpatient (CLI) | payer MEDICARE, SELFPAY ==
[2024-11-01 11:26] LABS: Hematocrit 41.3 % (37.0-47.0); Hemoglobin 13.5 g/dL (12.0-15.0); Mean Corpuscular HGB Conc 32.7 g/dl (32-36); Mean Corpuscular Hemoglobin 30.5 pg (26-34); Mean Corpuscular Volume 93.4 fl (80-100); Platelet Count Result 361 k/mm3 (150-375); Red Blood Count 4.42 M/mm3 (4.2-5.4); Red Cell Distribution Width 16.6 % (11.5-14.5); White Blood Count 13.9 K/mm3 (4.5-10.0)
[2024-11-01 11:34] LABS: Add Urine Microscopic? YES; Appearance Urine Cloudy (Clear); Bacteria Urine 3+ /hpf; Bilirubin Urine Negative (Negative); Blood Urine Negative (Negative); Color Urine Yellow (Yellow); Glucose Urine UA Negative (Negative); Ketones Urine Negative (Negative); Leukocyte Esterase Ur Negative LEU/UL (Negative); Need Manual Microscopic Reviewed; Nitrate Urine Negative (Negative); Non Pathogenic Casts 0-2; Protein Urine Negative (Negative); Specific Grav Ur 1.022 (1.001-1.035); Squamous Epithelial Cell Urine Few /hpf (Few); pH Urine 5.5 (5.0-9.0)
[2024-11-01 12:19] LABS: Alanine Aminotransferase 18 U/L (6-35); Albumin Level 4.2 g/dL (3.5-5.1); Alkaline Phosphatase 151 U/L (38-126); Anion Gap 8 mmol/L (4-12); Aspartate Amino Transferase 28 U/L (14-36); Bilirubin,Total 0.5 mg/dL (0.2-1.3); Blood Urea Nitrogen 22 mg/dL (7-17); Calcium 11.7 mg/dL (8.4-10.2); Carbon Dioxide 23 mmol/L (22-30); Chloride 106 mmol/L (98-107); Estimated Glomerular Filt Rate 50; Glucose 128 mg/dL (65-110); Magnesium 1.9 mg/dL (1.6-2.3); Potassium 4.9 mmol/L (3.4-5.0); Sodium 137 mmol/L (137-145)
[2024-11-01 12:29] LABS: Parathyroid Intact 120.3 pg/mL (14.5-75.2)
[2024-11-01 12:38] LABS: Vitamin D 25 Hydroxy 71.1 ng/mL
[2024-11-01 12:44] LABS: Creatinine Urine 166.2 mg/dL
[2024-11-01 12:48] LABS: Sodium Urine Random 104 meq/L
[2024-11-01 12:52] LABS: Thyroid Stimulating Hormone Reflex 0.831 uIU/mL (0.465-4.68)
[2024-11-01 12:53] LABS: Hepatitis B Surface Antigen Negative (Negative)
[2024-11-01 12:59] LABS: HIV 1/2 Ab P24 Ag Result Negative (Negative)
[2024-11-01 13:01] LABS: Creatinine Urine 156.3 mg/dL
[2024-11-01 13:10] LABS: Hepatitis B Surface Anti Res Negative; Hepatitis C Virus Antibody Negative (Negative)
[2024-11-01 13:35] LABS: MALB Creatinine Ratio < 3.8 mg/g (0-30); Microalbumin Urine Random < 6.0 mg/L (0-16.7)
[2024-11-01 13:36] LABS: Total Protein Urine Random < 5 mg/dL; Ur Ttl Prot Creatinine Ratio < 0.03 mg/mg (0-0.20)
[2024-11-01 19:22] LABS: Hemoglobin A1C 5.6 % (<5.7)
[2024-11-02 11:33] LABS: Protein, Total 7.2 g/dL (6.1-8.1)
[2024-11-02 15:19] LABS: Calcium/Creatinine Ratio, Ur 64 mg/g creat (10-320); Urine Calcium, Random 9.9 mg/dL; Urine Creatinine, Random 155 mg/dL (20-275)
[2024-11-02 15:34] LABS: Cystatin C 1.77 mg/L (0.52-1.10); eGFR 33 (> OR = 60)
[2024-11-02 15:54] LABS: Osmolality, Urine 716 mOsm/kg (50-1200)
[2024-11-03 12:13] LABS: Kappa\\Lambda Light Chains 1.75 (0.26-1.65); Lambda Light Chain 17.8 mg/L (5.7-26.3)
[2024-11-08 18:54] LABS: Albumin 4.1 g/dL (3.8-4.8); Alpha 1 Globulin 0.3 g/dL (0.2-0.3); Alpha 2 Globulin 0.8 g/dL (0.5-0.9); Beta 1 Globulin 0.6 g/dL (0.4-0.6)
== END 2024-11-01 10:32 | disposition home or self-care (01) ==
PROVIDERS: PCP Physician Assistant; Visit Provider Internal Medicine Nephrology
DX: N17.0 Acute kidney failure with tubular necrosis (principal); E87.1 Hypo-osmolality and hyponatremia; E83.52 Hypercalcemia; L73.2 Hidradenitis suppurativa; G93.40 Encephalopathy, unspecified; I12.9 Hypertensive chronic kidney disease with stage 1 through stage 4 chronic kidney disease, or unspecified chronic kidney disease; N18.9 Chronic kidney disease, unspecified; E11.22 Type 2 diabetes mellitus with diabetic chronic kidney disease; E78.00 Pure hypercholesterolemia, unspecified; Z11.4 Encounter for screening for human immunodeficiency virus [HIV]
CPT/HCPCS: 36415; 80053; 81001; 82043; 82306; 82310; 82570; 82610; 83036; 83735; 83883; 83930; 83935; 83970; 84133; 84155; 84156; 84165; 84300; 84443; 85027; 86703; 86706; 86803; 87340; G0432

== ENCOUNTER 2025-01-23 10:48 | Outpatient (CLI) | payer MEDICARE, SELFPAY ==
[2025-01-23 11:44] LABS: Add Urine Microscopic? NO; Appearance Urine Clear (Clear); Bilirubin Urine Negative (Negative); Blood Urine Negative (Negative); Color Urine Yellow (Yellow); Glucose Urine UA Negative (Negative); Ketones Urine Negative (Negative); Leukocyte Esterase Ur Negative LEU/UL (Negative); Nitrate Urine Negative (Negative); Protein Urine Negative (Negative); Specific Grav Ur 1.017 (1.001-1.035); Urobilinogen Urine 0.2 mg/dL (<2.0)
[2025-01-23 11:59] LABS: Hematocrit 41.7 % (37.0-47.0); Hemoglobin 13.4 g/dL (12.0-15.0); Mean Corpuscular HGB Conc 32.1 g/dl (32-36); Mean Corpuscular Hemoglobin 30.2 pg (26-34); Mean Corpuscular Volume 93.9 fl (80-100); Mean Platelet Volume 9.6 fl (7.4-10.4); Platelet Count Result 320 k/mm3 (150-375); Red Blood Count 4.44 M/mm3 (4.2-5.4); Red Cell Distribution Width 14.7 % (11.5-14.5); White Blood Count 12.3 K/mm3 (4.5-10.0)
[2025-01-23 12:02] LABS: Albumin Level 4.3 g/dL (3.5-5.1); Anion Gap 9 mmol/L (4-12); Blood Urea Nitrogen 13 mg/dL (7-17); Calcium 11.4 mg/dL (8.4-10.2); Carbon Dioxide 22 mmol/L (22-30); Chloride 103 mmol/L (98-107); Estimated Glomerular Filt Rate 43; Glucose 149 mg/dL (65-110); Magnesium 1.7 mg/dL (1.6-2.3); Phosphorus 2.1 mg/dL (2.5-4.5); Sodium 134 mmol/L (137-145)
[2025-01-23 12:12] LABS: Parathyroid Intact 105.6 pg/mL (14.5-75.2)
--- OUTSIDE RECORDS SUMMARY | 2025-01-23 12:36 | XMS_ITS | Clinical Summary ---
Author Organization [facility] Facility Address [address] [facility] [address] [place] [address] Care Team Providers Care Confectionery Drops Machine Operator Name Role Phone Tavo Matos Primary Care Provider [phone] Medications ciprofloxacin (CIPRO) 500 MG tablet Take 1 tablet (500 mg total) by mouth in the morning and 1 tablet (500 mg total) in the evening. 4 tablet 11/15/2024 Active Encounters Date Type Department Care Team Description 11/15/2024 12:15 PM PLANT MAINTENANCE SUPERVISOR Office Visit [facility], [facility] [address] [facility] [address] [place] [phone] Amado Rodríguez DO Stage 3 chronic kidney disease, not otherwise specified (HCC) (Primary Dx); Familial hypocalciuric hypercalcemia; Hidradenitis suppurativa of multiple sites; Cystitis; Encephalopathy, not otherwise specified; Hypertensive chronic kidney disease; Type 2 diabetes mellitus with diabetic chronic kidney disease (HCC); Pure hypercholesterolemia , not otherwise specified 11/15/2024 Refill [facility], [facility] [address] [facility] [address] [place] [id number] Olga Mccarthy CMA 11/09/2024 Documentation Only [facility], [address] [phone] Amado Rodríguez DO 11/04/2024 Documentation Only [facility], [address] [phone] Amado Rodríguez DO 11/04/2024 Documentation Only [facility], [address] [place] [address] Amado Rodríguez, DO 11/04/2024 Documentation Only [facility], [address] [address] Amado Rodríguez, DO 11/04/2024 Documentation Only [facility], [address] [address] Amado Rodríguez, DO 11/04/2024 Documentation Only [facility], [address] [address] Amado Rodríguez, DO 11/04/2024 Documentation Only [facility], [address] [address] Amado Rodríguez, DO 11/04/2024 Documentation Only [facility], [address] [address] Amado Rodríguez, DO 11/02/2024 Documentation Only [facility], [address] [phone] Amado Rodríguez, DO 11/02/2024 Documentation Only [facility], [address] [address] Amado Rodríguez, DO from Last 3 Months Social History Tobacco Use Types Packs/Day Years Used Date Smoking Tobacco: Never Assessed Comments Unknown Sex and Gender Information Value Date Recorded Sex Assigned at Not on file Legal Sex Female 2:21 PM EDT Gender Identity Not on file Sexual Orientation Not on file Last Filed Vital Signs Vital Sign Reading Time Taken Comments Blood Pressure 140/80 11/15/2024 12:35 PM PLANT MAINTENANCE SUPERVISOR Pulse 72 11/15/2024 12:35 PM PLANT MAINTENANCE SUPERVISOR Temperature 36.7 C (98 F) 11/15/2024 12:35 PM PLANT MAINTENANCE SUPERVISOR Respiratory Rate 18 11/15/2024 12:35 PM PLANT MAINTENANCE SUPERVISOR Oxygen Saturation 99% 11/15/2024 12:35 PM PLANT MAINTENANCE SUPERVISOR Inhaled Oxygen Concentration - - Weight 90.3 kg (199 lb 1.6 oz) 11/15/2024 12:35 PM PLANT MAINTENANCE SUPERVISOR Height - - Body Mass Index - - Plan of Treatment Upcoming Encounters Date Type Department Care Team (Late st Contact Info) Description 02/14/2025 1:30 PM CDT Office Visit [facility], [facility] [address] [facility] [address] [place] [phone] Amado Rodríguez DO [address] [facility] [address] [place] [address] Health Maintenance Due Date Last Done Comments Breast Cancer Screening 1954 Pneumococcal Vaccine: 65+ Ye ars (1 of 2 - PCV) 1960 Colorectal Cancer Screening: Annual FOBT 2003 Colorectal Cancer Screening: Colonoscopy 2003 Colorectal Cancer Screening: Sigmoidoscopy 2003 Diabetes: Hemoglobin A1C 09/06/2024 Diabetes: Ophthalmology Exam 09/06/2024 Diabetes: Pedal Pulse Checked 09/06/2024 Diabetes: Sensory Foot Exam 09/06/2024 Diabetes: Visual Foot Exam 09/06/2024 Influenza Vaccine (Season Ended) 2025 Hepatitis B Vaccine Aged Out No longe r eligible based on patient's age to complete this topic Insurance [address] [place] [id number] [facility] MEDICARE Advance Directives Documents on File Type Date Recorded Patient Biostatistics Manager Expl anation Advance Care Planning 09/09/2024 12:06 PM Care Teams Confectionery Drops Machine Operator Relationship Specialty Start Date End Date Tavo Matos PA [facility] [place] [address] PCP - General Physician Rock Dust Sprayer 06/29/24
--- OUTSIDE RECORDS SUMMARY | 2025-01-23 12:36 | XMS_ITS ---
Author Organization [facility] Address [address] [place] [address] Care Team Providers Care Machine Setup Operator Name Role Phone Daphne Rodriguez Primary Care Provider [phone] Vangie Carlson [phone] REASON FOR VISIT New Patient Psych Eval Encounters Encounter Location Date Provider Diagnosis [facility] [address] [place] [address] [place] [address] 09/29/2023 Vangie Carlson Plan Of Treatment No Information Progress Notes * Nancie VERMA PDOB:1965 (59 yo F)Acc No.[id number]:09/29/2023 UNLOCKED PROGRESS NOTE Patient: Nancie ELLISON Provider: HARLEEN Mesa, COCOA BEAN ROASTER, DIESEL ENGINE MECHANIC-C :1965 A ge:58 Y S ex:Female Date:09/29/2023 Address:[address] [place], [place] [id number] Pcp:Daphne Rodriguez Subjective: * Chief Complaints: * 1 . New Patient Psych Eval. * Medical History: Objective: * Vitals: Assessment: Plan: * Treatment: * * Electronic signature of Deneen Carlson , [id number] on 01/23/2025 at 12:35 PM CDT Sign off status: Pending * Provider: HARLEEN Mesa, [employer]OCOA BEAN ROASTER, DIESEL ENGINE MECHANIC-C Date: 1 11/30/2022 Generated for Nilesh cooper/Alfie/Sidneyitting on: 0 01/23/2025 12:35 PM CDT
--- OUTSIDE RECORDS SUMMARY | 2025-01-23 12:36 | XMS_ITS | Patient Health Record ---
Author Organization [facility] Address [address] [place] [address] Care Team Providers Care Order Packer Or Packager Name Role Phone Daphne Rodriguez Primary Care Provider [phone] Reason For Referral No Information Plan Of Treatment No Information Insurance Providers Payer Name Payer Address Payer Phone Subscriber Number Group Number Insured Name Patient Relationship to Insured Coverage Start Date Coverage End Date [facility] [address] [address] [place] [address] [id number] Nancie Verma Self - patient is the insured 3
[2025-01-23 12:58] LABS: Creatinine Urine 122.4 mg/dL
[2025-01-23 13:47] LABS: MALB Creatinine Ratio < 4.9 mg/g (0-30); Microalbumin Urine Random < 6.0 mg/L (0-16.7)
[2025-01-23 14:16] LABS: Creatinine Urine 122.3 mg/dL
[2025-01-23 14:17] LABS: Total Protein Urine Random < 5 mg/dL; Ur Ttl Prot Creatinine Ratio < 0.04 mg/mg (0-0.20)
[2025-01-23 14:56] LABS: Vitamin D 25 Hydroxy 68.9 ng/mL
== END 2025-01-23 10:49 | disposition home or self-care (01) ==
PROVIDERS: PCP Physician Assistant; Visit Provider Internal Medicine Nephrology
DX: I12.9 Hypertensive chronic kidney disease with stage 1 through stage 4 chronic kidney disease, or unspecified chronic kidney disease (principal); E11.22 Type 2 diabetes mellitus with diabetic chronic kidney disease; N18.30 Chronic kidney disease, stage 3 unspecified; E83.52 Hypercalcemia; L73.2 Hidradenitis suppurativa; N30.90 Cystitis, unspecified without hematuria; G93.40 Encephalopathy, unspecified
CPT/HCPCS: 36415; 80069; 81003; 82043; 82306; 82570; 83735; 83970; 84156; 85027

== ENCOUNTER 2025-04-24 10:52 | Outpatient (CLI) | payer MEDICARE, MEDICAID, SELFPAY ==
--- NOTE | ~2025-04-24 | XR_ITS ---
Lumbosacral Spine: AP and lateral views Clinical History: Pain Findings: No fracture or subluxation. There is straightening of the normal cervical lordosis. There i s severe degenerative disc narrowing at L2-L3, L4-L5. There is moderate degenerative single L5-S1. Th ere is moderate to advanced facet arthropathy throughout the lumbar spine. The sacroiliac joints are normally outlined. Impression: Moderate to severe degenerative spondylosis, as detailed above. Reviewed, dictated and finalized at location M. Impression: Moderate to severe degenerative spondylosis, as detailed above.
--- OUTSIDE RECORDS SUMMARY | 2025-04-24 11:06 | XMS_ITS | Data Portability ---
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 Plan of Treatment Reminders Order Date Submit Date Provider Last Modified By Organization Details Last Modified Time Details Appointments Any 15 2024 02:00P Amilcar Montoya, HAND [employer] Not available Not available Not available Lab hemoglobi n A1C, fingersti ck 2024 025 Formerly [facility], 1928–[facility], [address] [place] [address], [id number], 04/05/2025 16:02:39 glycohemo globin, total, blood [address] (Lab), [address] [place], [address], 2025 08:44:10 urinalysi s, dipstick 2024 025 [facility], [address] [place] [address], [id number], 01/19/2025 10:18:48 culture, urine + sensitivi ty 2024 025 [facility] (Lab), [address] [place], [address], 01/20/2025 11:10:59 Referral pain managemen t referral - Please call patient to schedule an appointme nt. Thank you. 2024 025 OSIEL Steel MD, [address] [facility] , [address] [facility], [place], [address], 04/11/2025 17:08:10 otolaryng ologist referral - Please call patient to schedule an appointme nt. Thank you. 2024 025 OSIEL Wray MD, [address], [place], [address], 04/11/2025 17:01:43 Procedures None recorded. Surgeries None recorded. Imaging XR, lumbosacr al spine, 2 or 3 view [address] [facility], [address], [place], [address], 04/19/2025 17:36:17 Medication Orders Ozempic 0.25 mg or 0.5 mg (2 mg/3 mL) subcutane ous pen injector [address] [facility], [address] [place] [address], [id number], 04/05/2025 15:30:46 Debrox 6.5 % ear drops 2024 [address] [facility], [address] [place] [address], [id number], 03/08/2025 11:30:07 DermOtic Oil 0.01 % ear drops 2024 [address] [facility], [address] [place] [address], [id number], 03/08/2025 11:32:25 Debrox 6.5 % ear drops [address] [facility], [address] [place] [address], [id number], 02/26/2025 16:23:30 docusate sodium 100 mg capsule 2024 025 [facility], [address] [place] [address], [id number], 01/19/2025 10:01:21 polyethyl marine glycol 3350 17 gram/dose oral powder 2024 025 [facility], [address] [place] [address], [address], 01/19/2025 10:01:24 ciproflox acin 500 mg tablet 2024 025 [facility], [address] [place] [address], [id number], 04/05/2025 15:16:56 Debrox 6.5 % ear drops 2024 025 [facility], [address] [place] [address], [id number], 01/19/2025 10:11:25 Patient TargetsNo targets recorded. Patient Instructions Encounter Date Encounter Id Patient Instructions Last Modified By Organization Details Last Modified Time 02/22/2025 [id number] right ear clear , left ear some cerumen came out , but not all . RTC 7 days for left ear irrigation [email or web address] Not available 02/26/2025 16:23:29 03/08/2025 [id number] rtc 7 days for left ear irrigation [id number] Not available 03/14/2025 11:39:35 Reason for Referral Pain Management Referral for Lumbar spondylosis Please call patient to schedule an appointment. Thank you. Referring Physician: Family Saleem Medicine, Encounter Date: 04/05/2025 Regroover Referral fo r Bilateral earache Please call patient to schedule an appointment. Thank you. Referring Physician: Family Narcisa Monge, Encounter Date: 04/05/2025 Results Created Date Observation Date Name Description Value Unit Range Abnormal Flag Note LastModifiedBy Organization Detail LastModifiedTime 04/05/2004/05/2025 hemog lobin A1C, finge rstic k HgbA1C 5.6 Not Available [facility] [address] [facility], [place], [address], 04/05/2025 15:19:40 09/26/20 24 09/26/2024 US, renal No observ ation record ed. [address], [place], [address], 10/07/2024 09:37:30 Result Notes None recorded. Problems Name Problem SNOMED Code Status Onset Date Resolution Date Notes Provider Name and Address Organization Details Recorded Time Disorder of trunk 260186440 Active Not Available [facility] 3 09:14:51 Abscess 896534422 Active Not Available [facility] 3 09:14:51 Smoking reduced 176007167 Active Not Available [facility] 3 09:14:51 Folliculit is 99097098 Active Not Available [facility] 3 09:14:51 Chronic obstructiv e pulmonary disease 02730058 Active Not Available [facility] 3 09:14:51 Chronic vaginitis 28703567 Active Not Available [facility] 3 09:14:51 Constipati on 15879224 Active 2021 Not Available [facility] 3 09:14:51 Hearing loss 85622899 Active 2021 Not Available [facility] 3 09:14:51 Hearing loss 87687046 Active 2021 Not Available [facility] 3 09:14:51 Hearing difficulty 944750907 Active Not Available [facility] 3 09:14:51 Asthma 089802405 Active Not Available [facility] 3 09:14:52 Osteoarthr itis of knee 064657931 Active Not Available [facility] 3 09:14:52 Acute vaginitis 65671564 Active Not Available [facility] 3 09:14:52 Hand cramps 673817050 Active Not Available [facility] 3 09:14:52 Headache 27403218 Active Not Available [facility] 3 09:14:52 Wound of skin 966609028 Active Not Available [facility] 3 09:14:52 Low back pain 566016525 Active Not Available [facility] 3 09:14:52 Pruritic disorder 330647968 Active Not Available [facility] 3 09:14:52 Polyuria 61813862 Active Not Available [facility] 3 09:14:52 Pain in right lower limb 003093480 Active Not Available [facility] 3 09:14:52 Vaginal discharge problem 386877345 Active Not Available [facility] 3 09:14:52 Dental abscess 661605840 Active Not Available [facility] 3 09:14:52 Pain in calf 101270671 Active Not Available [facility] 3 09:14:52 Left upper quadrant pain 247207797 Active Not Available [facility] 3 09:14:52 Current tear of medial cartilage AND/OR meniscus of knee Active Not Available [facility] 3 09:14:53 Current tear of lateral cartilage AND/OR meniscus of knee Active Not Available [facility] 3 09:14:53 Type 2 diabetes mellitus without complicati on 674974107 Active Not Available [facility] 3 09:14:53 Abscess of lower limb 306131688 Active Not Available [facility] 3 09:14:53 Abscess of skin and/or subcutaneo us tissue 86054324 Active Not Available [facility] 3 09:14:53 Restless legs 87201360 Active Not Available [facility] 3 09:14:53 Depressive disorder 12359246 Active Not Available [facility] 3 09:14:53 Hypertensi ve disorder 34898856 Active Not Available [facility] 3 09:14:53 Memory impairment 034654558 Active Not Available [facility] 3 09:14:53 Osteoarthr itis 907840607 Active Not Available [facility] 3 09:14:53 Dermatosis of scalp 670912221 Active Not Available [facility] 3 09:14:54 Dizziness 493453173 Active Not Available [facility] 3 09:14:54 Epidermoid cyst of skin 386243397 Active Not Available [facility] 3 09:14:54 Bacterial vaginosis 880106230 Active Not Available [facility] 3 09:14:54 Mass of colon 377255913 Active 2021 Not Available [facility] 3 09:14:54 Chronic osteoarthr itis 94811284 Active Not Available [facility] 3 09:14:54 Pain of breast 05965509 Active Not Available [facility] 3 09:14:54 Upper respirator y infection 20836317 Active Not Available [facility] 3 09:14:54 Hyperlipid emia 94159091 Active Not Available [facility] 3 09:14:54 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 13555772 Active Not Available [facility] 3 09:14:55 Essential hypertensi on 85413256 Active Not Available [facility] 3 09:14:55 Hypercalce thierno 70477376 Active Not Available [facility] 3 09:14:55 Hyperparat hyroidism 01749038 Active Not Available [facility] 3 09:14:55 Muscle pain 38859292 Active Not Available [facility] 3 09:14:55 Diabetes mellitus 85433344 Active Not Available [facility] 3 09:14:55 Pain in limb 18013322 Active Not Available [facility] 3 09:14:55 Reactive airway disease 486663048233 Active Not Available [facility] 3 09:14:55 Otitis externa of right ear 6802061830901 101 Active 2022 Chace Camarillo MD [address], [place], [address] , [facility] 3 17:57:32 Abdominal pain 61884432 Active 2022 Chace Camarillo MD [address], [place], [address] , [facility] 3 15:33:34 Nausea and vomiting 78303380 Active 2022 Chace Camarillo MD [address], [place], [address] , [facility] 3 15:47:55 Sleep disorder 87440499 Active 2022 Chace Camarillo MD [address], [place], [address] , [facility] - [facility] 3 15:12:43 Closed fracture of left ankle 2449683788320 9108 Active 2022 CORINNE Simpson [address], [place], [address] , [facility] 3 15:11:05 Bilateral hearing loss 38102531 Active 2023 Mateus Verma RN [facility], [facility] 4 14:34:32 SARS-CoV-2 Active 2023 CORINNE Simpson [address], [place], [address] , [facility] 4 09:07:59 Impacted cerumen of bilateral ears 5483504578993 108 Active 2023 CORINNE Simpson [address], [place], [address] , [facility] 4 17:18:45 Screening for malignant neoplasm of breast Active 2023 CORINNE Simpson [address], [place], [address] , [facility] 4 14:40:56 Mass of central portion of left breast 8920135470947 06 Active 2023 CORINNE Simpson [address], [place], [address] , [facility] 4 15:09:19 Mass of left breast 5727984978549 9103 Active 2023 Serenity Winston RN null, [place] [facility] [place] [facility] 4 11:31:21 Type 2 diabetes mellitus 01874617 Active 2023 Dulce Maria Ruby RN null, [place] - [facility] [place] [facility] 4 08:21:23 Serum creatinine above reference range 153722686 Active 2023 CORINNE Simpson [address], [address], [place], [address] , [facility] 4 00:12:32 Impacted cerumen 55697809 Active 2023 Marie Herrera null, [place] [facility] 4 09:52:25 Neuropathy 839490696 Active 2023 CORINNE Simpson [address], [address], [place], [address] , [facility] 4 09:52:47 Acute urinary tract infection 245823082 Active 2024 CORINNE Simpson [address], [address], [place], [address] , [facility] 5 10:03:15 Chronic kidney disease stage 3A 845803544 Active 2024 CORINNE Simpson [address], [address], [place], [address] , [facility] [place] [facility] 5 16:26:19 Hypertensi ve renal disease 43922948 Active 2024 CORINNE Simpson [address], [address], [place], [address] , [facility] 5 16:29:52 Eczema of external auditory canal 57011548 Active 2024 CORINNE Simpson [address], [address], [place], [address] , [facility] 5 11:30:12 Lumbar spondylosi s 935548454 Active 2024 JENNIFER Monge [address], [address], [place], [address] , [facility] 5 15:27:34 Bilateral earache 494220305 Active 2024 JENNIFER Monge [address] [facility], [address], [place], [address] , [facility] 5 15:33:39 Notes:Some problems listed i n Documents: #[id number], #[id number], #[id number], #[id number] could not be added to this patient's chart. Please review these documents and add these problems to the patient's chart manually as needed. Problem Notes None recorded. Procedures Surgical History Date Name Laterality Status Provider Name and Address Organization Details Recorded Time 5 Ear Irrigation completed CORINNE Simpson [address], [address], [place], [address], [facility] 03/14/2025 11:39:05 5 Ear Irrigation completed CORINNE Simpson [address], [address], [place], [address], [facility] 02/22/2025 12:21:55 4 Medicare Wellness CPT Code, subsequent completed Dulce Maria Ruby RN [facility] 03/28/2024 11:51:50 3 Transitional_C are_Management completed Indigo Antonio MA [facility] 03/26/2023 14:50:35 Imaging Results None recorded. Procedure Notes None recorded. Medical Equipment None Reported. Allergies Allergen ID Allergen Name Allergen Category Reaction Reaction Severity Criticality Documentation Date Start Date Code Code System Note Provider Name and Address Organization Details Recorded Time 05074 amoxicill in medicatio n Not available Not available Not available 12/17/2022 723 RxNorm yeast infec tion Not Available [facility] 3 09:17:34 Medications Name Sig Start Date Stop Date Status Note LastModified by Organization Details LastModified Time Prescript ion - Change active Not Available Not Available Not Available verapamil ER (SR) 120 mg tablet,ex tended release TAKE 1 TABLET BY MOUTH EVERY DAY active Not Available Not Available No t Available cyclobenz aprine 10 mg tablet TAKE 1 TABLET(S ) TWICE A DAY BY ORAL ROUTE. active Not Available Not Available No t Available neomycin- polymyxin -hydrocor t 3.5 mg/mL-10, 000 unit/mL-1 % ear solution INSTILL 4 DROPS INTO AFFECTED EAR(S) BY OTIC ROUTE 3 TIMES PER DAY active Not Available Not Available No t Available BD Alcohol Swabs active Not Available Not Available Not Available nystatin 100,000 unit/mL oral suspensio n active Not Available Not Available Not Available venlafaxi ne ER 37.5 mg capsule,e xtended release 24 hr TK 1 C PO QD 07/03 completed Not Available Not Available Not Available venlafaxi ne ER 75 mg capsule,e xtended release 24 hr TK 1 C PO QD 02/06 completed Not Available Not Available Not Available gabapenti n 600 mg tablet TK 1 T PO TID 09/27 completed Not Available Not Available Not Available nicotine 14 mg/24 hr daily transderm al patch Apply 1 patch every day by transder mal route. active Not Available Not Available No t Available Pneumovax -23 25 mcg/0.5 mL injection solution INJECT 0.5 ML INTRAMUS CULARLY DIRECTED . active Not Available Not Available No t Available oxybutyni n chloride ER 10 mg tablet,ex tended release 24 hr TAKE 1 TABLET BY MOUTH EVERY DAY active Not Available Not Available No t Available azithromy jose 250 mg tablet TAKE 2 TABLETS BY MOUTH TODAY, THEN TAKE 1 TABLET DAILY FOR 4 DAYS 04/15 completed Not Available Not Available Not Available ibuprofen 800 mg tablet TAKE 1 TABLET BY MOUTH THREE TIMES A DAY NEEDED 07/03 completed Not Available Not Available Not Available fluconazo le 150 mg tablet Take 1 tablet every day by oral route. 12/27 completed Not Available Not Available Not Available ranitidin e 300 mg tablet TAKE 1 TABLET TWICE A DAY 04/04 completed Not Available Not Available Not Available hydrocodo ne 5 mg-acetam inophen 325 mg tablet TK 1 OR 2 TS PO Q 4 TO 6 H PRN active Not Available Not Available No t Available ondansetr on HCl 8 mg tablet Take 1 tablet every 8 hours by oral route for 2 days. active Not Available Not Available No t Available meloxicam 15 mg tablet TAKE 1 TABLET BY MOUTH EVERY DAY 04/05 completed Not Available Not Available Not Available metronida zole 0.75 % (37.5 mg/5 gram) vaginal gel INSERT 1 APPLICAT ORFUL VAGINALL Y FOR 5 DAYS active Not Available Not Available No t Available Medrol (Tushar) 4 mg tablets in a dose pack Take by oral route as directed 04/15 completed Not Available Not Available Not Available prednison e 20 mg tablet 04/15 completed Not Available Not Available Not Available dexametha sone 6 mg tablet Take 1 tablet every day by oral route in the morning for 7 days. 03/28 completed Not Available Not Available Not Available gabapenti n 400 mg capsule Take 1 capsule 3 times a day by oral route. 10/06 completed Not Available Not Available Not Available metronida zole 500 mg tablet TK 2 TS PO Q 12 H FOR 1 DAY active Not Available Not Available No t Available acetamino phen 300 mg-codein e 30 mg tablet active Not Available Not Available Not Available insulin syringe U-100 with needle 1 mL 29 gauge x 05/03 completed Not Available Not Available Not Available ciproflox acin 500 mg tablet Take 1 tablet every 12 hours by oral route for 10 days. 04/05 completed Not Available Not Available Not Available sulfameth oxazole 800 mg-trimet hoprim 160 mg tablet Take 1 tablet every 12 hours by oral route for 10 days. 07/03 completed Not Available Not Available Not Available hydrocodo ne 10 mg-acetam inophen 325 mg tablet 07/03 completed Not Available Not Available Not Available peg-elect rolyte solution 420 gram oral solution MIX AND DRINK UTD 09/27 completed Not Available Not Available Not Available omeprazol e 40 mg capsule,d elayed release Take 1 capsule every day by oral route. active Not Available Not Available No t Available tramadol 50 mg tablet TAKE 1-2 TABLETS BY MOUTH twice daily NEEDED FOR PAIN. MUST LAST 30 DAYS. active Not Available Not Available No t Available acetamino phen 500 mg tablet Take 2 tablets every 6 hours by oral route as needed. active Not Available Not Available No t Available triamcino lone acetonide 0.1 % topical cream APPLY THIN LAYER TO DAMP SCALP RUB IN WELL COVER LEAVE ON 4 HOURS OVERNIGH T THEN WASH OFF 07/03 completed Not Available Not Available Not Available butalbita l-acetami nophen-ca ffeine 50 mg-325 mg-40 mg tablet TAKE 1 TABLET BY MOUTH 4 TIMES DAILY NEEDED FOR HEADACHE active Not Available Not Available No t Available simvastat in 40 mg tablet TAKE 1 TABLET BY MOUTH EVERY DAY 07/03 completed Not Available Not Available Not Available ondansetr on 8 mg disintegr ating tablet TAKE 1 TABLET BY MOUTH 3 TIMES PER DAY NEEDED FOR NAUSEA active Not Available Not Available No t Available lidocaine -prilocai ne 2.5 %-2.5 % topical cream active Not Available Not Available Not Available pramipexo le 0.5 mg tablet Take 1 tablet every day by oral route at bedtime. active Not Available Not Available No t Available Celebrex 200 mg capsule Take 1 capsule every day by oral route. 2013 active Not Available Not Available Not Avai lable meloxicam 7.5 mg tablet TK 1 T PO D PRN 08/03 completed Not Available Not Available Not Available verapamil 120 mg tablet Take 1 tablet every day by oral route. 08/03 completed Not Available Not Available Not Available oxycodone -acetamin ophen 5 mg-325 mg tablet active Not Available Not Available Not Available alprazola m 0.5 mg tablet TAKE 1 TABLET TWICE A DAY BY ORAL ROUTE NEEDED. 02/04 completed Not Available Not Available Not Available amoxicill in 875 mg tablet active Not Available Not Available Not Available alprazola m 0.25 mg tablet TAKE 1 TABLET BY MOUTH 3 TIMES A DAY NEEDED active Not Available Not Available No t Available famotidin e 20 mg tablet TAKE 1 TABLET BY MOUTH TWICE A DAY active Not Available Not Available No t Available oxycodone -acetamin ophen 10 mg-325 mg tablet TK 1 T PO Q 6 H PRN P active Not Available Not Available No t Available Ear Wax Removal Kit 6.5 % drops INSTILL 10 DROPS INTO AFFECTED EAR(S) ( LEFT EAR) BY OTIC ROUTE 1 TIMES PER DAY... leave for 30 minutes , pull up and back on auricle and drain ,, use rubber ear plugs to keep fluid in active Not Available Not Available No t Available OneTouch Ultra Test strips ACCUCHEC K TWICE DAILY active Not Available Not Available No t Available meclizine 25 mg tablet TAKE 1 TABLET 3 TIMES A DAY BY ORAL ROUTE NEEDED. 02/04 completed Not Available Not Available Not Available amlodipin e 10 mg tablet 1 po daily 05/28 completed Not Available Not Available Not Available dexametha sone 2 mg tablet 03/28 completed Not Available Not Available Not Available hydrocodo ne 7.5 mg-acetam inophen 325 mg tablet active Not Available Not Available Not Available cephalexi n 500 mg capsule Take 1 capsule every 12 hours by oral route. active Not Available Not Available No t Available oseltamiv ir 75 mg capsule Take 1 capsule twice a day by oral route for 5 days. 07/03 completed Not Available Not Available Not Available Prozac 20 mg capsule one po daily 07/23 completed Not Available Not Available Not Available metformin 1,000 mg tablet TAKE 1 TABLET BY MOUTH TWICE A DAY active Not Available Not Available No t Available triamcino lone acetonide 0.1 % topical ointment active Not Available Not Available Not Available ranitidin e 150 mg tablet Take 1 tablet twice a day by oral route. 08/03 completed Not Available Not Available Not Available clotrimaz ole-betam ethasone 1 %-0.05 % topical cream APPLY TO RASH ON BOTTOM TWICE A DAY NEEDED UNTIL CLEAR active Not Available Not Available No t Available ranitidin e 300 mg capsule active Not Available Not Available Not Available orphenadr ine citrate ER 100 mg tablet,ex tended release 07/03 completed Not Available Not Available Not Available nicotine 21 mg/24 hr daily transderm al patch APPLY 1 PATCH(ES ) EVERY DAY BY TRANSDER MAL ROUTE. active Not Available Not Available No t Available Advair Diskus 500 mcg-50 mcg/dose powder for inhalatio n INHALE 1 PUFF BY MOUTH TWICE A DAY NEEDED active Not Available Not Available No t Available docusate sodium 100 mg capsule Take 1 capsule twice a day by oral route as directed for 30 days. active Not Available Not Available No t Available gabapenti n 300 mg capsule TAKE 1 CAPSULE BY MOUTH THREE TIMES A DAY 01/13 completed Not Available Not Available Not Available omeprazol e 20 mg capsule,d elayed release TAKE ONE CAPSULE BY MOUTH EVERY DAY active Not Available Not Available No t Available Banophen 25 mg capsule TAKE 1 CAPSULE BY MOUTH 3 TIMES DAILY NEEDED FOR ALLERGIC REACTION active Not Available Not Available No t Available monteluka st 10 mg tablet TAKE 1 TABLET BY MOUTH EVERY DAY IN THE EVENING active Not Available Not Available No t Available hydroxyzi ne HCl 25 mg tablet TAKE 1 TO 2 TABLETS AT BEDTIME NEEDED ITCHING active Not Available Not Available No t Available bisacodyl 5 mg tablet,de layed release active Not Available Not Available Not Available mupirocin 2 % topical ointment APPLY TO AFFECTED AREA 3 TIMES A DAY 02/04 completed Not Available Not Available Not Available zolpidem 5 mg tablet active Not Available Not Available Not Available furosemid e 20 mg tablet active Not Available Not Available Not Available gabapenti n 100 mg capsule Take 1 capsule 3 times a day by oral route. 09/06 completed Not Available Not Available Not Available ergocalci ferol (vitamin D2) 1,250 mcg (50,000 unit) capsule TAKE 1 CAP BY MOUTH 1 TIME PER WEEK active Not Available Not Available No t Available clobetaso l 0.05 % topical ointment 09/27 completed Not Available Not Available Not Available epinephri ne 0.3 mg/0.3 mL injection , auto-inje ctor active Not Available Not Available Not Available ibuprofen 600 mg tablet 12/27 completed Not Available Not Available Not Available cefuroxim e axetil 500 mg tablet active Not Available Not Available Not Available polyethyl marine glycol 3350 17 gram/dose oral powder MIX 17GM WITH LIQUID AND TAKE BY MOUTH DAILY NEEDED 3 days per week active Not Available Not Available No t Available levofloxa jose 500 mg tablet 1 po daily 03/23 completed Not Available Not Available Not Available albuterol sulfate HFA 90 mcg/actua tion aerosol inhaler INHALE 2 PUFFS BY MOUTH EVERY 4 HOURS NEEDED FOR WHEEZING /SOB active Not Available Not Available No t Available morphine 15 mg immediate release tablet active Not Available Not Available Not Available ondansetr on 4 mg disintegr ating tablet 04/04 completed Not Available Not Available Not Available cefdinir 300 mg capsule active Not Available Not Available Not Available fluticaso ne propionat e 50 mcg/actua tion nasal spray,leeann pension USE 2 SPRAYS IN EACH NOSTRIL DAILY active Not Available Not Available No t Available loratadin e 10 mg tablet TK 1 T PO QD 08/03 completed Not Available Not Available Not Available spironola ctone 50 mg tablet Take 1 tablet every day by oral route. active Not Available Not Available No t Available nicotine 7 mg/24 hr daily transderm al patch Apply 1 patch every day by transder mal route. active Not Available Not Available No t Available Pneumovax -23 25 mcg/0.5 mL injection syringe PHARMACY ADMINIST ERED 04/04 completed Not Available Not Available Not Available Q-Dryl 12.5 mg/5 mL oral liquid TK 5 ML PO Q 6-8 H PRN FOR MILD TO SEVERE ALLERGIC REACTION 08/03 completed Not Available Not Available Not Available escitalop vinay 20 mg tablet TAKE 1 TABLET BY MOUTH EVERY DAY 07/03 completed Not Available Not Available Not Available nicotine 21mg/24hr -14mg/24h r-7mg/24h r daily transderm patches,s equentl Apply 1 patch every day by transder mal route. 07/03 completed Not Available Not Available Not Available cyclobenz aprine 5 mg tablet TAKE 1 TABLET BY MOUTH AT BEDTIME NEEDED FOR MUSCLE SPASMS 10/06 completed Not Available Not Available Not Available duloxetin e 30 mg capsule,d elayed release TAKE 1 CAPSULE BY MOUTH EVERY DAY FOR 2 WEEKS active Not Available Not Available No t Available duloxetin e 60 mg capsule,d elayed release TAKE 1 CAPSULE BY MOUTH EVERY DAY 04/04 completed Not Available Not Available Not Available [facility]/FS Scalp Oil 0.01 % APPLY THIN LAYER TO DAMP SCALP BY TOPICAL ROUTE MASSAGE WELL AND COVER. LEAVE ON FOR 4 HOURS OR OVERNIGH T THEN WASH OFF active Not Available Not Available No t Available pregabali n 50 mg capsule Take 1 capsule twice a day by oral route as needed for 30 days. active Not Available Not Available No t Available zoledroni c acid 2013 active injectio n given once on 05/26/14 Not Available Not Available Not Available OneTouch Ultra2 Meter kit 08/09 completed Not Available Not Available Not Available Chantix 1 mg tablet FPD UTD 09/27 completed Not Available Not Available Not Available fluocinol one acetonide oil 0.01 % ear drops INSTILL 5 DROPS INTO AFFECTED EAR(S) bilatera l BY OTIC ROUTE 4 TIMES PER DAY for 2 days then 2 times daily active Not Available Not Available No t Available aripipraz ole 2 mg tablet 07/03 completed Not Available Not Available Not Available Symbicort 160 mcg-4.5 mcg/actua tion HFA aerosol inhaler INHALE 2 PUFFS BY MOUTH TWICE DAILY - RINSE MOUTH AFTER USE active Not Available Not Available No t Available venlafaxi ne ER 150 mg tablet,ex tended release 24 hr Take 1 tablet every day by oral route. 07/23 completed Not Available Not Available Not Available Prevnar 13 (PF) 0.5 mL intramusc ular syringe TO BE ADMINIST ERED BY [facility] FOR IMMUNIZA TION 08/03 completed Not Available Not Available Not Available Chantix Starting Month Box 0.5 mg (11)-1 mg (42) tablets in dose pack 04/07 completed Not Available Not Available Not Available Stimulant Laxative Plus 8.6 mg-50 mg tablet Take 2 tablets every day by oral route as needed. active Not Available Not Available No t Available Fluvirin (PF) 45 mcg (15 mcg x3)/0.5 mL intramusc ular syringe TO BE ADMINIST ERED BY [facility] FOR IMMUNIZA TION active Not Available Not Available No t Available Easy Touch Safety Lancets 30 gauge DIABETIC TESTING SUPPLY Check BS daily active Not Available Not Available No t Available Fluvirin 45 mcg (15 mcg x 3)/0.5 mL intramusc ular suspensio n INJECT 0.5 ML INTRAMUS CULARLY DIRECTED . active Not Available Not Available No t Available Fluvirin 45 mcg (15 mcg x 3)/0.5 mL intramusc ular suspensio n active Not Available Not Available Not Available Rexulti 1 mg tablet TAKE 1 TABLET BY MOUTH EVERY DAY active Not Available Not Available No t Available Rexulti 0.5 mg tablet 07/03 completed Not Available Not Available Not Available Fluvirin 45 mcg (15 mcg x 3)/0.5 mL intramusc ular suspensio n ADM 0.5ML IM UTD active Not Available Not Available No t Available Flucelvax Quad (PF) 60 mcg (15 mcg x 4)/0.5 mL IM syringe TO BE ADMINIST ERED BY [facility] FOR IMMUNIZA TION 08/03 completed Not Available Not Available Not Available Fluzone Quad (P F) 60 mcg(15 mcgx4)/0. 5 mL intramusc ular syringe TO BE ADMINIST ERED BY [facility] FOR IMMUNIZA TION 09/27 completed Not Available Not Available Not Available OneTouch Ultra2 Meter active Not Available Not Available Not Available Fluzone High-Dose Quad (PF) 240 mcg/0.7 mL IM syringe PHARMACY ADMINIST ERED 04/04 completed Not Available Not Available Not Available Paxlovid 300 mg (150 mg x 2)-100 mg tablets in a dose pack take 3 tabs twice daily for 5 days 07/19 completed Not Available Not Available Not Available Ozempic 0.25 mg or 0.5 mg (2 mg/3 mL) subcutane ous pen injector Inject 0.25 mg every week by subcutan eous route as directed for 28 days. active Not Available Not Available No t Available Vitals Date Recorded Body height Body mass index (BMI) Body weight Body temperature Oxygen saturation Oxygen saturation in Arterial blood by Pulse oximetry Heart rate Systolic And Diastolic Provider Name and Address Organization Details Last Updated DateTime 5 161.29 cm 35 kg/m2 21787.0 7 g 97.5 [degF] 96 % 96 % 98 /min 120/72 mm[Hg] Brianna Truong Sujit [facility] [employer] [place] [facility] 5 09:50:35 Date Recorded Body height Body mass index (BMI) Body weight Body temperature Heart rate Oxygen saturation Oxygen saturation in Arterial blood by Pulse oximetry Systolic And Diastolic Provider Name and Address Organization Details Last Updated DateTime 5 161.29 cm 35 kg/m2 71726.0 7 g 97.8 [degF] 83 /min 96 % 96 % 130/88 mm[Hg] Brianna Truong Sujit [facility] [employer] [place] [facility] 5 11:45:04 Date Recorded Body height Body mass index (BMI) Body weight Body temperature Heart rate Oxygen saturation Oxygen saturation in Arterial blood by Pulse oximetry Systolic And Diastolic Provider Name and Address Organization Details Last Updated DateTime 5 161.29 cm 35.3 kg/m2 77940.3 8 g 97.2 [degF] 94 /min 97 % 97 % 130/78 mm[Hg] Linda Miranda [facility] 5 10:51:20 Date Recorded Body height Body temperature Heart rate Respiratory rate Oxygen saturation Oxygen saturation in Arterial blood by Pulse oximetry Body mass index (BMI) Body weight Systolic And Diastolic Provider Name and Address Organization Details Last Updated DateTime 5 161.29 cm 97 [degF] 84 /min 28 /min 97 % 97 % 35.6 kg/m2 62928.9 4 g 132/90 mm[Hg] Dia Jade RN [facility] [employer] [facility] 5 15:08:21 Social History Question Answer Notes LastModified by Organizat ion Details LastModified Time Tobacco Smoking Status Never Smoker Cynthia Liang CMA null, [facility] 01/13/2023 11:52:08 Are You Blind Or Do You Have Difficulty Seeing? Yes Glasses Information not available 04/05/2025 In The 14 Days Before Symptom Onset, Have You Had Close Contact With A Laboratory-confir med COVID-19 While That Case Was Ill? No [id number] Information not available 12/17/2022 In The 14 Days Before Symptom Onset, Have You Had Close Contact With A Person Who Is Under Investigation For COVID-19 While That Person Was Ill? No [id number] Information not available 12/17/2022 Are You Deaf Or Do You Have Serious Difficulty Hearing? Yes Very Hard Of Hearing Information not available 04/05/2025 Have There Been Any Changes To Your Family Or Social Situation? No Information no t available 04/05/2025 What Was The Date Of Your Most Recent Tobacco Screening? 03/28/2024 [email or web address] Information not available 03/28/2024 Do You Have Any Pets? No Information not available 04/05/2025 Do You Use Your Seat Belt Or Car Seat Routinely? Yes Information not available 04/05/2025 Do You Have Smoke And Carbon Monoxide Detectors In Your Home? Yes Information not available 04/05/2025 Are You Passively Exposed To Smoke? No Information no t available 04/05/2025 Are There Any Smokers In Your House? No Information not available 04/05/2025 Do You Participate In Social Media? No Information not available 04/05/2025 Have You Recently Traveled Abroad? No [id number] Information not available 12/17/2022 Do You Have Difficulty Walking Or Climbing Stairs? No Information not available 04/05/2025 Sex: Unknown Functional Status Question Answer Note LastModified by Organizat ion Details LastModified Time What is your level of alcohol consumption? None [email or web address] Information not available 01/13/2023 Are you currently employed? No Information not available 04/05/2025 Do you have transportation difficulties? No Information not available 04/05/2025 Are you able to walk? [facility] Information not available 04/05/2025 Do you have difficulty doing errands alone? Yes Information not available 04/05/2025 Are you able to care for yourself? lives at Extended care facility Information not available 04/05/2025 Do you have difficulty dressing or bathing? No Information not available 04/05/2025 Mental Status Question Answer Note LastModified by Organization D etails LastModified Time Do you feel stressed (tense, restless, nervous, or anxious, or unable to sleep at night)? [id number] Information not available 04/05/2025 Family History Relationship Description Onset Age of this Age Resolved Age Notes LastModified by Organization Details LastModified Time Sister Diabetes mellitus [id number] Not available 12/17/2022 09:13:45 Sister Hypertensive disorder [id number] Not available 12/17/2022 09:13:45 Mother Diabetes mellitus [id number] Not available 12/17/2022 09:13:45 Medical History Condition Response ALLERGIES/HAYFEVER Y OTHER # 1 Y COPD Y DEPRESSION (INCLUDING POST ) Y HYPOTENSION Y OBESITY Y ECZEMA Y DIABETES, TYPE Y SEASONAL ALLERGIES Y HEARTBURN / REFLUX Y ASTHMA Y DIZZINESS Y KIDNEY DISEASE Y Gynecological HistoryNo gynecological history recorded. Obstetrics History GPAL:G 0 P 0 0 0 0 Immunizations Vaccine Type Date Status Note Provider Nam e and Address Organization Details Recorded Time Influenza, high-dose, quadrivalent, PF 2 completed Not Available [facility] 12/17/2022 09:17:30 Influenza, adjuvanted, quadrivalent, PF 1 completed Dia Jade RN null, [facility] 04/05/2025 14:56:53 COVID-19, mRNA, LNP-S, PF, 30 mcg/0.3 mL dose 1 completed Dia Jade RN null, [facility] 04/05/2025 14:56:53 Influenza, high-dose, trivalent, PF 4 completed CORINNE Simpson [address], [place], [address], [facility] 08/09/2024 17:14:35 pneumococcal polysaccharide PPV23 4 completed CORINNE Simpson [address], [place], [address], [facility] 08/09/2024 17:14:35 Past Encounters Encounter ID Performer Location Encounter Start Date Encounter Closed Date Diagnosis/Indication Diagnosis SNOMED-CT Code Diagnosis ICD10 Code Diagnosis Note [id number] Chace Camarillo MD [facility] [place] [address] [place] [address] 04/04/2021 00:00:00 04/04/2021 21:10:09 [id number] Chace Camarillo MD [facility] [place] [address] [place] [address] 06/06/2021 00:00:00 06/07/2021 06:21:32 [id number] Chace Camarillo MD [facility] [place] [address] [place] [address] 06/27/2021 00:00:00 06/27/2021 21:01:06 [id number] Chace Camarillo MD [facility] [place] [address] [place] [address] 07/18/2021 00:00:00 07/18/2021 21:22:01 [id number] Chace Camarillo MD [facility] [place] [address] , [place] [address] 09/06/2021 00:00:00 09/06/2021 16:32:07 [id number] Chace Camarillo MD [facility] [place] [address] , [place] [address] 12/10/2021 00:00:00 12/11/2021 06:09:32 [id number] Chace Camarillo MD [facility] [place] [address] , [place] [address] 12/19/2021 00:00:00 12/19/2021 19:58:45 [id number] Chace Camarillo MD [facility] [place] [facility] [address] [place] [address] 01/08/2022 00:00:00 01/08/2022 19:49:21 [id number] Chace Camarillo MD [facility] [place] [address] , [place] [address] 04/15/2022 00:00:00 04/15/2022 21:12:50 [id number] Chace Camarillo MD [facility] [place] [address] [place] [address] 08/28/2022 00:00:00 08/29/2022 06:33:05 [id number] Chace Camarillo MD [facility] [place] [address] [place] [address] 10/08/2022 00:00:00 10/08/2022 20:53:39 [id number] Chace Camarillo MD [facility] [place] [address] [facility] [place] [address] 01/21/2023 14:52:47 01/21/2023 15:53:38 Abdominal pain 44640438 R10.9 Needs to d/c meloxicam. Needs to start omeprazole 40 mg daily Nausea and vomiting 1692 1999 R11.2 Ask for zofran as needed, has it as prn at facility she lives inF/u in 2 weeks. [id number] Chace Camarillo MD [facility] [place] [address] [place] [address] [place] [address] 02/04/2023 14:38:42 02/04/2023 15:18:45 Abdominal pain 87175301 R10.9 Doing better Hearing loss 66878072 H9 1.93 Get new hearing aides the ones she has is cutting into outside of ear Sleep disorder 24307617 G47.9 [id number] Chace Camarillo MD [facility] [place] [address] [place] [address] [place] [address] 03/26/2023 14:47:22 03/26/2023 15:28:25 Transition of care 5958147083 105 Z75.8 Closed fra cture of left ankle 9607754550 9920632 S82.892A Chronic low back pain 27 3874116 M54.50 [id number] Chace Camarillo MD [facility] [place] [address] [place] [address] [place] [address] 01/14/2024 11:49:01 01/14/2024 12:34:02 Impacted cerumen of bilateral ears 5765536161 986320 H61.23 Asthma 793795800 J45.90 9 Chronic ob structive pulmonary disease 98843766 J44.9 Chronic osteoarthritis 08664333 M19.90 Constipation 57799141 K5 9.00 Depressive disorder 3548 9007 F32.A Essential hypertension 20560328 I10 Hearing difficulty 62379 0000 H90.0 Hidradenit is suppurativa 25637577 L73.2 Hyperlipidemia 86719545 E78.5 Low back pain 259345302 M54.50 Osteoarthr itis of knee 755111688 M17.9 Restless legs 97058046 G 25.81 Type 2 driss betes mellitus without complication 841345545 E11.9 [id number] Adama Paredes MD [facility] [place] [facility] [place] [address] 01/27/2024 14:02:34 01/27/2024 15:00:10 Impacted cerumen of bilateral ears 6514022098 470176 H61.23 Screening for malignant neoplasm of breast 023463189 Z12.39 Asthma 916141136 J45.90 9 Bilateral hearing loss 61280092 H91.93 Chronic ob structive pulmonary disease 98949585 J44.9 Chronic osteoarthritis 13779124 M19.90 Depressive disorder 3548 9007 F32.A Essential hypertension 00143488 I10 Hyperlipidemia 16404674 E78.5 Low back pain 287311423 M54.50 Osteoarthritis 177246486 M19.90 Osteoarthr itis of knee 670546215 M17.9 Restless legs 37030180 G 25.81 [id number] Adama Paredes MD [facility] [place] [address] [place] [address] [place] [address] 03/28/2024 11:47:44 03/28/2024 12:32:10 Adult health examination 666228123 Z00.00 Screening for disorder 886591025 Z13.9 Abscess 155562093 L02.91 sternum [id number] Adama Paredes MD [facility] [place] [address] [place] [address] [place] [address] 07/19/2024 11:19:50 07/19/2024 11:55:18 Administration of influenza vaccine 57788956 Z23 Chronic low back pain 27 8424782 M54.50 Impacted c erumen of bilateral ears 2735327960 789878 H61.23 Administra tion of pneumococcal vaccine 41839776 Z23 Asthma 289740851 J45.90 9 Bilateral hearing loss 11955594 H91.93 Chronic ob structive pulmonary disease 62116099 J44.9 Chronic osteoarthritis 66576593 M19.90 Depressive disorder 3548 9007 F32.A Hearing loss 80308380 H9 1.93 Restless legs 31337455 G 25.81 Type 2 driss betes mellitus without complication 332620293 E11.9 [id number] Adama Paredes MD [facility] [address] [facility] [address] , [place] [address] 07/29/2024 11:51:05 09/14/2024 09:50:33 Impacted cerumen 37499118 H61.22 [id number] Adama Paredes MD [address] [address] 01/19/2025 09:37:50 01/19/2025 10:22:55 Constipation 40844296 K59.00 Acute urin brent tract infection 488006690 N39.0 Impacted c erumen of bilateral ears 5573108666 887994 H61.23 [id number] Adama Paredes MD [address] [address] 02/22/2025 11:34:36 02/22/2025 12:16:11 Bilateral hearing loss 33012080 H91.93 Impacted c erumen of bilateral ears 7079412196 011514 H61.23 Type 2 driss betes mellitus 82994675 E11.9 Hypertensi ve renal disease 63987357 I12.9 N18.31 [id number] Adama Paredes MD [address] [address] 03/08/2025 10:40:41 03/08/2025 11:37:56 Hypertensive renal disease 58408755 I12.9 N18.31 Acute urin brent tract infection 715501374 N39.0 Impacted cerumen 6347147 6 H61.22 Impacted c erumen of bilateral ears 1961030218 491612 H61.23 Eczema of external auditory canal 48724441 H60.543 Bilateral hearing loss 19529706 H91.93 Chronic ki dney disease stage 3A 679873674 N18.31 Chronic osteoarthritis 97469843 M19.90 [id number] Adama Paredes MD [facility] [address] [address] 04/05/2025 14:52:16 04/05/2025 15:41:56 Essential hypertension 08839342 I10 Well controlled with current medication s Diabetes mellitus 922484 09 E11.9 A1C check today Lumbar spondylosis 59231 0009 M47.816 This has radiculopa thyZee has completed PT and pain management and found this minimally effective. She currently takes tramadol, pregabalin , and tylenol for this. 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 Health Concerns Section Related Observation LastModified by Organization Detai ls LastModified Time None Recorded Concern Status LastModified by Organization Details LastModified Time None Recorded Advance Directives Directive None Recorded Payers Insurance Date Sequence Insurance Name Policy Number Policy Tanner Covered Member ID Tanner Member ID Guarantor Name 07/19/2024 1 [facility] [id number] Nancie Verma [id number] Nancie Verma 04/05/2025 1 [facility] (MEDICARE REPLACEMENT/A DVANTAGE - PPO) [id number] Nancie Verma [id number] Nancie Verma 07/19/2024 1 [facility] (MEDICARE REPLACEMENT/A DVANTAGE - PPO) Nancie Verma [id number] Nancie Verma 03/22/2025 2 [place] [employer] Nancie Verma [id number] Nancie Verma Notes Date Note Type Note Provider Name and Address Organization Details Recorded Time 01/19/2025 text/html chills yesterday and today , no fever CORINNE Simpson [address], [place], [address], [facility] 01/23/2025 10:51:22 02/22/2025 text/html both ears stoppe d up since [place]. CORINNE Simpson [address], [place], [address], [facility] [employer] [place] [facility] 02/26/2025 16:30:43 03/08/2025 text/html still wax in ear , left , not sure they are putting in drops right at the facility CORINNE Simpson [address], [facility] [address], [place], [address], [facility] [employer] [place] [facility] 03/14/2025 11:44:49 04/05/2025 text/html Nancie Verma is a 70 year old female patient here today to establish care, she was previously under the care of Alhaji Matos. She is hard of hearing, she has concerns today with LAVINIA ear pain, this is chronic.She has difficulty with speech related to her hearing loss. 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 She has concerns today with neuropathy of the right leg, this is causing her pain today. She takes pregabalin 50 mg BID and tramadol 50 mg daily. This has been present for 3-4 years. She has CKD, she sees a direct care professional Type 2 diabetes mellitus. Last A1C unknown.The patient does check their blood glucose at home.They are currently taking metformin 1,000 mg BID.Patient denies confusion, excessive urination and thirst.Admits to neuropathy History of hypertension. This is well controlled. Patient does not check BP readings at home. She takes verapamil 120 mg daily.BP on arrival today is 132/90.Patient declines fatigue.She admits to headaches and dizziness daily. She will take a tylenol for this. She does have asthma. She takes Symbicort daily. JENNIFER Monge [address], [facility] [address], [place], [address], [facility] [employer] [place] [facility] 04/05/2025 16:02:44 OBGyn Episode No OBEpisode recorded.
== END 2025-04-24 10:53 | disposition home or self-care (01) ==
PROVIDERS: PCP Physician Assistant
DX: M47.817 Spondylosis without myelopathy or radiculopathy, lumbosacral region (principal); M48.061 Spinal stenosis, lumbar region without neurogenic claudication; M47.816 Spondylosis without myelopathy or radiculopathy, lumbar region
CPT/HCPCS: 72100

== ENCOUNTER 2025-06-06 13:35 | Outpatient (CLI) | payer MEDICARE, MEDICAID, SELFPAY ==
--- OUTSIDE RECORDS SUMMARY | 2025-06-06 13:54 | XMS_ITS | Patient Health Record ---
Author Organization [facility] [employer] Address [address] [place] [address] Care Team Providers Care Sign Language Interpreter Name Role Phone Sandor Moss Unavailable [phone] Reason For Referral No Information Medications Medication SIG (Take, Route, Frequency, Duration) Notes Start Date End Date Status Spironolactone 50 MG Tablet Oral 11/10/2023 Active SINGLE USE SWAB PADS, MEDICATED (EA) TOPICAL *Reorder from C[facility] Wanted for eRx and Interaction Alerts* 11/10/2023 Active Symbicort 160-4.5 MCG/ACT Aerosol Inhalation 11/10/2023 Active Banophen 25 MG Capsule Oral 11/10/2023 Active Lneayksl-Afrwdnktp-DX 3.5-27615-9 Solution Otic 11/10/2023 Active FLUVIRIN 9359-6735 45 MCG (15 MCG X 3)/0.5 ML INTRAMUSCULAR SUSPENSION *Reorder from Cuffed and Wanted for eRx and Interaction Alerts* 11/10/2023 Active Polyethylene Glycol 3350 Powder Oral 11/10/2023 Active Ranitidine HCl 300 MG Tablet Oral 11/10/2023 Active Acetaminophen Extra Strength 500 MG Tablet Oral 11/10/2023 Activ e Gabapentin 400 MG Capsule Oral 11/10/2023 Active Ergocalciferol 1.25 MG (24580 UT) Capsule Oral 11/10/2023 Active Gabapentin 300 MG Capsule Oral 11/10/2023 Active Ondansetron 8 MG Tablet Disintegrating Oral 11/10/2023 Active Famotidine 20 MG Tablet Oral 11/10/2023 Active metFORMIN HCl 1000 MG Tablet Oral 11/10/2023 Active Omeprazole 40 MG Capsule Delayed Release Oral 11/10/2023 Active EPINEPHrine 0.3 MG/0.3ML Solution Auto-injector Injection 11/10/2023 Activ e Aspirin 81 MG Tablet Chewable Oral 11/10/2023 Active Rexulti 1 mg Tablet Oral 11/10/2023 Active oxyBUTYnin Chloride ER 10 MG Tablet Extended Release 24 Hour Oral 11/10/2023 Active Paxlovid (300/100) 20 x 150 MG & 10 x 100MG Tablet Therapy Pack Oral *Reorder from [facility] for eRx and Interaction Alerts* 11/10/2023 Active ProAir HFA 108 (90 Base) MCG/ACT Aerosol Solution Inhalation 11/10/2023 Act danica Cyclobenzaprine HCl 5 MG Tablet Oral 11/10/2023 Active PNEUMOVAX-23 25 MCG/0.5 ML INJECTION SOLUTION *Reorder from [facility] for eRx and Interaction Alerts* 11/10/2023 Active dexAMETHasone 2 MG Tablet Oral 11/10/2023 Active traMADol HCl 50 MG Tablet Oral 11/10/2023 Active Meclizine HCl 25 MG Tablet Oral 11/10/2023 Active FLUVIRIN 0927-9066 45 MCG (15 MCG X 3)/0.5 ML INTRAMUSCULAR SUSPENSION *Reorder from [facility] for eRx and Interaction Alerts* 11/10/2023 Active Advil *Pick strength-form from [facility] for eRX* 11/10/2023 Active Verapamil HCl ER 120 MG Tablet Extended Release Oral 11/10/2023 Acti ve EAR WAX REMOVAL 6.5 % Solution Otic 11/10/2023 Active Bisacodyl EC 5 MG Tablet Delayed Release Oral 11/10/2023 Active FLUVIRIN 8844-6636 45 mcg (15 mcg x 3)/0.5 mL SYRINGE (ML) INTRAMUSCULAR *Reorder from [facility] for eRx and Interaction Alerts* 11/10/2023 Active Meloxicam 15 MG Tablet Oral 11/10/2023 Active methylPREDNISolone 4 MG Tablet Therapy Pack Oral 11/10/2023 Active Cyclobenzaprine HCl 10 MG Tablet Oral 11/10/2023 Active STIMULANT LAXATIVE PLUS 8.6-50 mg Tablet Oral *Reorder from [facility] for eRx and Interaction Alerts* 11/10/2023 Active FLUVIRIN 1599-7067 45 mcg (15 mcg x 3)/0.5 mL VIAL (ML) INTRAMUSCULAR *Reorder from [facility] for eRx and Interaction Alerts* 11/10/2023 Active INSULIN SYRINGE U-100 WITH NEEDLE 1 ML 29 GAUGE X 7/16 *Reorder from [facility] for eRx and Interaction Alerts* 11/10/2023 Active OneTouch Ultra 2 w/Device Kit 11/10/2023 Active ALPRAZolam 0.5 MG Tablet Oral 11/10/2023 Active EASY TOUCH 30 gauge EACH MISCELLANEOUS *Reorde r from [facility] for eRx and Interaction Alerts* 11/10/2023 Active Montelukast Sodium 10 MG Tablet Oral 11/10/2023 Active Fluticasone Propionate Diskus 50 MCG/ACT Aerosol Powder Breath Activated Inhalation *Reorder from [facility] for eRx and Interaction Alerts* 11/10/2023 Active ONETOUCH ULTRA2 METER KIT *Reorder from [facility] for eRx and Interaction Alerts* 11/10/2023 Active OneTouch Ultra Strip In Vitro 11/10/2023 Active Immunizations Vaccine Route Administration Date Status Comme nts Influenza virus vaccine, quadrivalent (IIV4), split virus, 0.25 mL dosage Unknown 08/27/2015 Administered Influenza virus vaccine, quadrivalent (IIV4), split virus, 0.25 mL dosage Unknown 08/01/2016 Administered Influenza virus vaccine, quadrivalent (IIV4), split virus, 0.25 mL dosage Unknown 08/01/2021 Administered Influenza, high dose seasonal Unknown 09/02/2019 Admini stered Influenza, injectable, MDCK, preservative free Unknown 07/21/2017 Administered Influenza, seasonal, injecta ble, preservative free, 3 yrs and above Unknown 07/05/2014 Administered Novel [id number], preservative free Unknown 07/18/2018 Administered Pneumococcal conjugate PCV 13 Unknown 07/21/2017 Admini stered Pneumococcal polysaccharide PPV23 Unknown 07/05/2014 Ad ministered Pneumococcal polysaccharide PPV23 Unknown 08/01/2021 Ad ministered Social History Social History Additional Details Category Social Info Options Details Migrated Social History Migrated Social History Alcohol Intake: None 08/17/2018,Tobacco Years: Current every day smoker 11/28/2021,Smoking Status: 50 09/17/2023 Plan Of Treatment No Information Insurance Providers Payer Name Payer Address Payer Phone Subscriber Number Group Number Insured Name Patient Relationship to Insured Coverage Start Date Coverage End Date [employer] Medicare Replacement/ Advantage - Ppo [address] [address] [place] [phone] [id number] AMBROSE PETERSEN Self - patient is the insured [facility] [address] [place] [phone] [id number] TRINITY CAITLINTREVIN Self - patient is the insured Medical (General) History Surgical History Surgery Date(Month/Year) Appendectomy () Hysterectomy () Other Any surgical history Colectomy (95480) Cardiac stent
[2025-06-06 14:21] LABS: Hematocrit 41.9 % (37.0-47.0); Hemoglobin 14.0 g/dL (12.0-15.0); Mean Corpuscular HGB Conc 33.4 g/dl (32-36); Mean Corpuscular Hemoglobin 30.0 pg (26-34); Mean Corpuscular Volume 89.7 fl (80-100); Platelet Count Result 328 k/mm3 (150-375); Red Blood Count 4.67 M/mm3 (4.2-5.4); White Blood Count 11.7 K/mm3 (4.5-10.0)
[2025-06-06 15:12] LABS: Add Urine Microscopic? YES; Appearance Urine Clear (Clear); Glucose Urine UA Negative (Negative); Leukocyte Esterase Ur Trace LEU/UL (Negative); Nitrate Urine Negative (Negative); Non Pathogenic Casts 0-2; Specific Grav Ur 1.016 (1.001-1.035)
[2025-06-06 15:45] LABS: MALB Creatinine Ratio 4.4 mg/g (0-30)
[2025-06-06 15:50] LABS: Total Protein Urine Random < 5 mg/dL; Ur Ttl Prot Creatinine Ratio < 0.02 mg/mg (0-0.20)
[2025-06-06 16:32] LABS: Albumin Level 4.3 g/dL (3.5-5.1); Anion Gap 8 mmol/L (4-12); Blood Urea Nitrogen 7 mg/dL (7-17); Calcium 11.7 mg/dL (8.4-10.2); Carbon Dioxide 20 mmol/L (22-30); Chloride 102 mmol/L (98-107); Estimated Glomerular Filt Rate 46; Glucose 96 mg/dL (65-110); Magnesium 1.9 mg/dL (1.6-2.3); Potassium 4.5 mmol/L (3.4-5.0); Sodium 130 mmol/L (137-145)
[2025-06-06 18:02] LABS: Parathyroid Intact 130.4 pg/mL (14.5-75.2)
[2025-06-07 07:09] LABS: eGFR 50 (>59)
[2025-06-08 01:07] LABS: Osmolality, Urine 411 mOsmol/kg (.)
[2025-06-23 07:56] LABS: Calcium, Urine 15.7
[2025-06-23 07:57] LABS: Chloride, Urine 38
== END 2025-06-06 13:36 | disposition home or self-care (01) ==
PROVIDERS: PCP Physician Assistant; Visit Provider Internal Medicine Nephrology
DX: I12.9 Hypertensive chronic kidney disease with stage 1 through stage 4 chronic kidney disease, or unspecified chronic kidney disease (principal); E11.22 Type 2 diabetes mellitus with diabetic chronic kidney disease; N18.30 Chronic kidney disease, stage 3 unspecified; E83.52 Hypercalcemia; L73.2 Hidradenitis suppurativa; G93.40 Encephalopathy, unspecified; E78.00 Pure hypercholesterolemia, unspecified
CPT/HCPCS: 36415; 80069; 81001; 82043; 82306; 82340; 82436; 82570; 82610; 83735; 83935; 83970; 84133; 84156; 84300; 85027

== ENCOUNTER 2025-08-14 13:04 | Outpatient (CLI) | payer MEDICARE, MEDICAID, SELFPAY ==
--- NOTE | ~2025-08-14 | XR_ITS ---
XR lumbar spine 2-3V Indication: radciulopathy ON L AND T SPINE pain in hip ad shoulder and k Comparison: None Findings: Moderate to severe loss of vertebral height throughout, no fracture is identified. Severe loss of disc height throughout. Soft tissues unremarkable Impression: No acute abnormality. Reviewed, dictated and finalized at location P. Impression: No acute abnormality.
--- NOTE | ~2025-08-14 | XR_ITS ---
EXAMINATION: XR knee RT min 4V, 08/14/2025 14:00 CDT HISTORY: radciulopathy ON L AND T SPINE pain in hip ad shoulder and k COMPARISON: No comparisons available. Findings: No acute fracture or malalignment. No significant degenerative changes. Soft tissues unremarkable. Impression: No acute fracture or malalignment. Reviewed, dictated and finalized at location P. Impression: No acute fracture or malalignment.
--- NOTE | ~2025-08-14 | XR_ITS ---
XR_[id number]_CR Indication: radciulopathy ON L AND T SPINE pain in hip ad shoulder and k Comparison: None Findings: Grade 1 anterolisthesis of C3 on C4 and C4-C5, no fracture. Severe loss of disc height C5-6 C6-7 and C7-T1. Soft tissues unremarkable Impression: No acute abnormality. Reviewed, dictated and finalized at location P. Impression: No acute abnormality.
--- NOTE | ~2025-08-14 | XR_ITS ---
EXAMINATION: XR shoulder RT min 2V, 08/14/2025 14:00 CDT HISTORY: radciulopathy ON L AND T SPINE pain in hip ad shoulder and k COMPARISON: No comparisons available. Findings: No acute fracture or malalignment. Moderate to severe degenerative changes with underlying rotator cuff injury suspected Soft tissues unremarkable. Impression: No acute fracture or malalignment. Reviewed, dictated and finalized at location P. Impression: No acute fracture or malalignment.
--- NOTE | ~2025-08-14 | XR_ITS ---
EXAMINATION: XR hip BI wo pelvis, 08/14/2025 14:00 CDT HISTORY: radciulopathy ON L AND T SPINE pain in hip ad shoulder and k COMPARISON: No comparisons available. Findings: No acute fracture or malalignment. Moderate degenerative changes Soft tissues unremarkable. Impression: No acute fracture or malalignment. Reviewed, dictated and finalized at location P. Impression: No acute fracture or malalignment.
--- NOTE | ~2025-08-14 | XR_ITS ---
EXAMINATION: XR shoulder LT min 2V, 08/14/2025 14:00 CDT HISTORY: radciulopathy ON L AND T SPINE pain in hip ad shoulder and k COMPARISON: No comparisons available. Findings: No acute fracture or malalignment. Moderate degenerative changes Soft tissues unremarkable. Impression: No acute fracture or malalignment. Reviewed, dictated and finalized at location P. Impression: No acute fracture or malalignment.
--- NOTE | ~2025-08-14 | XR_ITS ---
EXAMINATION: XR knee LT min 4V, 08/14/2025 14:00 CDT HISTORY: radciulopathy ON L AND T SPINE pain in hip ad shoulder and k COMPARISON: No comparisons available. Findings: No acute fracture or malalignment. No significant degenerative changes. Soft tissues unremarkable. Impression: No acute fracture or malalignment. Reviewed, dictated and finalized at location P. Impression: No acute fracture or malalignment.
--- NOTE | ~2025-08-14 | XR_ITS ---
XR thoracic spine 3V Indication: radciulopathy ON L AND T SPINE pain in hip ad shoulder and k Comparison: None Findings: The vertebral heights are intact. No fracture or subluxation. The disc heights are intact. Soft tissues unremarkable Impression: No acute abnormality. Reviewed, dictated and finalized at location P. Impression: No acute abnormality.
--- OUTSIDE RECORDS SUMMARY | 2025-08-14 14:41 | XMS_ITS | Clinical Summary ---
Author Organization [facility] Facility Address [address] [facility] [address] [place] [address] Care Team Providers Care Inverter And Clipper Name Role Phone Tavo Matos Primary Care Provider [phone] Medications ciprofloxacin (CIPRO) 500 MG tablet Take 1 tablet (500 mg total) by mouth in the morning and 1 tablet (500 mg total) in the evening. 4 tablet 11/15/2024 Active sodium chloride 1 g tablet Take 1 tablet (1 g total) by mouth in the morning and 1 tablet (1 g total) in the evening. 180 tablet 1 06/29/2025 Active Encounters Date Type Department Care Team Description 07/18/2025 Orders Only [facility], [address] [phone] Amado Rodríguez, DO 06/29/2025 Refill [facility], [address] [phone] Olga Mccarthy, DIRECTOR OF TRANSPORTATION 06/29/2025 Office Communication [facility], [address] [phone] Amado Rodríguez, DO 06/29/2025 Refill [facility], [address] [phone] Olga Mccarthy, DIRECTOR OF TRANSPORTATION 06/26/2025 Office Communication [facility], [address] [phone] Amado Rodríguez, DO 06/26/2025 Office Communication [facility], [address] [address] [place]ga larose, DIRECTOR OF TRANSPORTATION 06/23/2025 Documentation Only [facility], [address] [address] Amado Rodríguez, DO 06/23/2025 Documentation Only [facility], [address] [address] Amado Rodríguez, DO 06/20/2025 12:45 PM CDT Office Visit [facility], [facility] [address] [facility] [address] [place] [address] Amado Rodríguez, DO Stage 3 chronic kidney disease, not otherwise specified (HCC) (Primary Dx); Familial hypocalciuric hypercalcemia; Hypo-osmolality and hyponatremia; Hypertensive chronic kidney disease; Type 2 diabetes mellitus with diabetic chronic kidney disease (HCC); Pure hypercholesterolemia , not otherwise specified 06/20/2025 Refill [facility], [facility] [address] [facility] [address] [place] [phone] [place], Olga, [facility] 06/20/2025 Refill [facility], [facility] [address] [facility] [address] [place] [address] [place]ga larose, [facility] 06/08/2025 Documentation Only [facility], [address] [address] Amado Rodríguez, DO 06/07/2025 Documentation Only [facility], [address] [phone] Amado Rodríguez, DO 06/07/2025 Documentation Only [facility], [address] [address] Amado Rodríguez, DO 06/07/2025 Documentation Only [facility], [address] [phone] Amado Rodríguez, 06/06/2025 Documentation Only [facility], [address] [place] [address] [place] [address] Amado Rodríguez, 06/06/2025 Documentation Only [facility], [address] [place] [address] Amado Rodríguez DO from Last 3 Months Social History Tobacco Use Types Packs/Day Years Used Date Smoking Tobacco: Never Assessed Comments Unknown Sex and Gender Information Value Date Recorded Sex Assigned at Not on file Legal Sex Female 2:21 PM EDT Gender Identity Not on file Sexual Orientation Not on file Last Filed Vital Signs Vital Sign Reading Time Taken Comments Blood Pressure 120/80 06/20/2025 12:51 PM CDT Pulse 68 06/20/2025 12:51 PM CDT Temperature 36.1 C (97 F) 06/20/2025 12:51 PM CDT Respiratory Rate 18 06/20/2025 12:51 PM CDT Oxygen Saturation 97% 06/20/2025 12:51 PM CDT Inhaled Oxygen Concentration - - Weight 83.9 kg (185 lb) 06/20/2025 12:51 PM CDT Height - - Body Mass Index - - Plan of Treatment Upcoming Encounters Date Type Department Care Team (Late st Contact Info) Description 09/12/2025 12:00 PM TEST PULLER Office Visit [facility] [address] [phone] Amado Rodríugez DO [address] [place], [place] [address] [address] Health Maintenance Due Date Last Done Comments Breast Cancer Screening 1954 Colorectal Cancer Screening: Annual FOBT 2003 Colorectal Cancer Screening: Colonoscopy 2003 Colorectal Cancer Screening: Sigmoidoscopy 2003 Diabetes: Hemoglobin A1C 09/06/2024 Diabetes: Ophthalmology Exam 09/06/2024 Diabetes: Pedal Pulse Checked 09/06/2024 Diabetes: Sensory Foot Exam 09/06/2024 Diabetes: Visual Foot Exam 09/06/2024 Influenza Vaccine (#1) 2025 , 08/02/2021, 08/01/2021, Additional history exists Pneumococcal Vaccine: 50+ Years Completed 07/19/2024, 08/01/2021, 07/21/2017, Additional history exists Hepatitis B Vaccine Aged Out No longe r eligible based on patient's age to complete this topic Procedures Procedure Name Priority Date/Time Associated Diagnosis Comments CALCIUM/CREATININE RATIO Routine 07/18/2025 8:42 AM CDT TSH+FREE T4 Routine 07/18/2025 8:42 AM CDT OSMOLALITY (SERUM) Routine 07/18/2025 8: 42 AM CDT Stage 3 chronic kidney disease, not otherwise specified (HCC) Familial hypocalciuric hypercalcemia Hypo-osmolality and hyponatremia Hypertensive chronic kidney disease Type 2 diabetes mellitus with diabetic chronic kidney disease (HCC) Pure hypercholesterolemia, not otherwise specified SODIUM, URINE, RANDOM Routine 07/18/2025 8:42 AM CDT Stage 3 chronic kidney disease, not otherwise specified (HCC) Familial hypocalciuric hypercalcemia Hypo-osmolality and hyponatremia Hypertensive chronic kidney disease Type 2 diabetes mellitus with diabetic chronic kidney disease (HCC) Pure hypercholesterolemia, not otherwise specified POTASSIUM, URINE, RANDOM Routine 07/18/2025 8:42 AM CDT Stage 3 chronic kidney disease, not otherwise specified (HCC) Familial hypocalciuric hypercalcemia Hypo-osmolality and hyponatremia Hypertensive chronic kidney disease Type 2 diabetes mellitus with diabetic chronic kidney disease (HCC) Pure hypercholesterolemia, not otherwise specified OSMOLALITY, URINE Routine 07/18/2025 8:4 2 AM CDT Stage 3 chronic kidney disease, not otherwise specified (HCC) Familial hypocalciuric hypercalcemia Hypo-osmolality and hyponatremia Hypertensive chronic kidney disease Type 2 diabetes mellitus with diabetic chronic kidney disease (HCC) Pure hypercholesterolemia, not otherwise specified PROTEIN / CREATININE RATIO, URINE Routine 07/18/2025 8:42 AM CDT Stage 3 chronic kidney disease, not otherwise specified (HCC) Familial hypocalciuric hypercalcemia Hypo-osmolality and hyponatremia Hypertensive chronic kidney disease Type 2 diabetes mellitus with diabetic chronic kidney disease (HCC) Pure hypercholesterolemia, not otherwise specified URINE ALBUMIN / CREATININE RATIO Routine 07/18/2025 8:42 AM CDT Stage 3 chronic kidney disease, not otherwise specified (HCC) Familial hypocalciuric hypercalcemia Hypo-osmolality and hyponatremia Hypertensive chronic kidney disease Type 2 diabetes mellitus with diabetic chronic kidney disease (HCC) Pure hypercholesterolemia, not otherwise specified PTH, INTACT Routine 07/18/2025 8:42 AM CDT Stage 3 chronic kidney disease, not otherwise specified (HCC) Familial hypocalciuric hypercalcemia Hypo-osmolality and hyponatremia Hypertensive chronic kidney disease Type 2 diabetes mellitus with diabetic chronic kidney disease (HCC) Pure hypercholesterolemia, not otherwise specified MAGNESIUM Routine 07/18/2025 8:42 AM CDT Stage 3 chronic kidney disease, not otherwise specified (HCC) Familial hypocalciuric hypercalcemia Hypo-osmolality and hyponatremia Hypertensive chronic kidney disease Type 2 diabetes mellitus with diabetic chronic kidney disease (HCC) Pure hypercholesterolemia, not otherwise specified RENAL FUNCTION PANEL Routine 07/18/2025 8:42 AM CDT Stage 3 chronic kidney disease, not otherwise specified (HCC) Familial hypocalciuric hypercalcemia Hypo-osmolality and hyponatremia Hypertensive chronic kidney disease Type 2 diabetes mellitus with diabetic chronic kidney disease (HCC) Pure hypercholesterolemia, not otherwise specified CYSTATIN C WITH EGFR Routine 07/18/2025 8:42 AM CDT Stage 3 chronic kidney disease, not otherwise specified (HCC) Familial hypocalciuric hypercalcemia Hypo-osmolality and hyponatremia Hypertensive chronic kidney disease Type 2 diabetes mellitus with diabetic chronic kidney disease (HCC) Pure hypercholesterolemia, not otherwise specified from Last 3 Months Results * (ABNORMAL) Cystatin C w/GFR (07/18/2025 8:42 AM CDT) [facility] Cystatin C 1.25(H) 0.78 - 1.15 mg/L [facility] eGFR by Cystatin C 52(L) >59 mL/min/1.7 3 [facility] 07/18/2025 8:42 AM CDT 07/17/2025 11:00 PM CDT Amado Rodríguez DO LAB BLOOD ORDERABLES Final R esult [facility] [address] [place] [address] * TSH+Free T4 (07/18/2025 8:42 AM CDT) TSH 1.470 0.450 - 4.500 uIU/mL [facility] Free T4 1.26 0.82 - 1.77 ng/dL [facility] 07/18/2025 8:42 AM CDT 07/17/2025 11:00 PM CDT Amado Rodríguez DO LAB BLOOD ORDERABLES Final R esult Performing Organization Address City/[facility]/ZIP Co de Phone Number [facility] [address] [place] [address] * Calcium/Creatinine Ratio (07/18/2025 8:42 AM CDT) Calcium, Ur 14.8 Not Estab. mg/dL [facility] Calcium/Creat.R atio 79 29 - 442 mg/g creat [facility] 07/18/2025 8:42 AM CDT 07/17/2025 11:00 PM CDT Amado Rodríguez DO LAB URINE ORDERABLES Final R esult [facility] [address] [place] [address] * Urine Protein / creatinine ratio (07/18/2025 8:42 AM CDT) Creatinine, Ur 188.4 Not Estab. mg/dL [facility] Protein, Ur 10.5 Not Estab. mg/dL [facility] Urine Protein/Creatin ine Ratio 56 0 - 200 mg/g creat [facility] Urine Urine specimen obtained by clean catch procedure / Unknown 07/18/2025 8:42 AM CDT 07/17/2025 11:00 PM CDT Amado Rodríguez DO LAB URINE ORDERABLES Final R esult [facility] [employer] [facility] [place] [address] [place] [address] * Urine Albumin / Creatinine Ratio (07/18/2025 8:42 AM CDT) Albumin, Urine 3.6 Not Estab. ug/mL [facility] Albumin/Creatin ine Ratio 2 0 - 29 mg/g creat [facility] Comment: Normal: 0 - 29 Moderately increased: 30 - 300 Severely increased: >300 Urine Urine specimen obtained by clean catch procedure / Unknown 07/18/2025 8:42 AM CDT 07/17/2025 11:00 PM CDT Amado Rodríguez DO LAB URINE ORDERABLES Final R esult [facility] [place] [address] [place] [address] * Urine, sodium,random (07/18/2025 8:42 AM CDT) Sodium, 24H Ur 74 Not Estab. mmol/L [facility] Urine Urine specimen obtained by clean catch procedure / Unknown 07/18/2025 8:42 AM CDT 07/17/2025 11:00 PM CDT Amado Rodríguez DO LAB URINE ORDERABLES Final R esult Performing Organization Address [facility] Co de Phone Number [facility] [address] [place] [address] * Urine Potassium (07/18/2025 8:42 AM CDT) Potassium, Ur 38.4 Not Estab. mmol/L [facility] Urine Urine specimen obtained by clean catch procedure / Unknown 07/18/2025 8:42 AM CDT 07/17/2025 11:00 PM CDT Amado Rodríguez DO LAB URINE ORDERABLES Final R esult Performing Organization Address [facility] de Phone Number [facility] [address] [place] [address] * Urine Osmolality (07/18/2025 8:42 AM CDT) Osmolality, Ur 409 mOsmol/kg [facility] Comment: 24 hr : 300 - 900 Random: 50 - 1400 After 12hr fluid restriction: >850 Urine Urine specimen obtained by clean catch procedure / Unknown 07/18/2025 8:42 AM CDT 07/17/2025 11:00 PM CDT Amado Rodríguez DO LAB URINE ORDERABLES Final R esult Performing Organization Address City/[facility] Co de Phone Number [facility] [address] [place] [address] * (ABNORMAL) PTH, intact (07/18/2025 8:42 AM CDT) PTH 119(H) 15 - 65 pg/mL [facility] Blood Venous blood / Unknown 07/18/2025 8:42 AM CDT 07/17/2025 11:00 PM CDT Amado Rodríguez DO LAB BLOOD ORDERABLES Final R esult [facility] [address] [place] [address] * (ABNORMAL) Osmolality (07/18/2025 8:42 AM CDT) Osmolality Calc 278(L) 280 - 301 mOsmol/kg [facility] Blood Venous blood / Unknown 07/18/2025 8:42 AM CDT 07/17/2025 11:00 PM CDT Amado Rodríguez DO LAB BLOOD ORDERABLES Final R esult Performing Organization Address City/[facility]/ZIP Co de Phone Number [facility] [place] [address] * Magnesium (07/18/2025 8:42 AM CDT) Magnesium 1.8 1.6 - 2.3 mg/dL [facility] Blood Venous blood / Unknown 07/18/2025 8:42 AM CDT 07/17/2025 11:00 PM CDT Amado Rodríguez DO LAB BLOOD ORDERABLES Final R esult [facility] [address] [place] [address] * (ABNORMAL) Renal function panel (07/18/2025 8:42 AM CDT) Glucose 88 70 - 99 mg/dL [facility] BUN 7(L) 8 - 27 mg/dL [facility] Creatinine 1.28(H) 0.57 - 1.00 mg/dL [facility] eGFR CKD-EPI CR 2020 45(L) >59 mL/min/1.7 3 [facility] BUN/Creatinine Ratio 5(L) 12 - 28 [facility] Sodium 138 134 - 144 mmol/L [facility] Potassium 4.2 3.5 - 5.2 mmol/L [facility] Chloride 103 96 - 106 mmol/L [facility] Bicarbonate (CO2) 20 20 - 29 mmol/L [facility] Calcium 11.4(H) 8.7 - 10.3 mg/dL [facility] Phosphorus 2.3(L) 3.0 - 4.3 mg/dL [facility] Albumin 4.2 3.8 - 4.8 g/dL [facility] Blood Venous blood / Unknown 07/18/2025 8:42 AM CDT 07/17/2025 11:00 PM CDT us Amado Rodríguez DO LAB BLOOD ORDERABLES Final R esult [facility] [place] [address] [place] [address] from Last 3 Months Insurance [facility] Medicare Advance Directives Documents on File Type Date Recorded Patient Engraved Roller Inspector Expl anation Advance Care Planning 09/09/2024 12:06 PM Care Teams Inverter And Clipper Relationship Specialty Start Date End Date Tavo Matos PA [facility] [place] [phone] PCP - General Physician Loan Documents Closer 06/29/24
--- OUTSIDE RECORDS SUMMARY | 2025-08-14 14:41 | XMS_ITS | Clinical Summary ---
Author Organization [facility] Eldon benedict [facility] Address [address] [facility] [place] [address] Care Team Providers Care Research Soil Scientist Name Role Phone Unavailable Primary Care Provider Unavailabl e Social History Tobacco Use Types Packs/Day Years Used Date Smoking Tobacco: Never Assessed Comments Unknown Sex and Gender Information Value Date Recorded Sex Assigned at Not on file Legal Sex Female 11:26 AM CDT Gender Identity Not on file Sexual Orientation Not on file Plan of Treatment Upcoming Encounters Date Type Department Care Team (Late st Contact Info) Description 11/15/2025 1:30 PM GAME AND FISH PROTECTOR Office Visit [facility] Oncology and Hematology - [address] [facility] [address] [place] [address] Chauncey Lemus MD [address] [facility] [address] [place] [address] Health Maintenance Due Date Last Done Comments DTAP/TDAP/TD VACCINES (1 - Tdap) 1973 BREAST CANCER SCREENING 1994 COLORECTAL SCREENING 1999 Colorectal Cancer Screening 1999 FIT-DNA Q 3 years 1999 FIT/FOBT Q 1 year 1999 Flex Sig/CT Colonography Q 5 years 1999 PNEUMOCOCCAL VACCINE 50+ YEARS (1 of 1 - PCV) 03/09/20 04 ZOSTER VACCINE (1 of 2) 2004 OSTEOPOROSIS SCREENING 2019 INFLUENZA VACCINE (#1) 2025 RSV VACCINE (60+ or ) (1 - 1-dose 75+ series) 2029 Insurance [facility] [id number] [facility] [place]
--- OUTSIDE RECORDS SUMMARY | 2025-08-14 14:41 | XMS_ITS | Patient Health Record ---
Author Organization [facility] Address [address] [place] [address] Care Team Providers Care Touch Up Painter Name Role Phone Sandor Moss Unavailable [phone] Reason For Referral No Information Medications Medication SIG (Take, Route, Frequency, Duration) Notes Start Date End Date Status Spironolactone 50 MG Tablet Oral 11/10/2023 Active SINGLE USE SWAB PADS, MEDICATED (EA) TOPICAL *Reorder from [employer] for eRx and Interaction Alerts* 11/10/2023 Active Symbicort 160-4.5 MCG/ACT Aerosol Inhalation 11/10/2023 Active Banophen 25 MG Capsule Oral 11/10/2023 Active Aycvxzsy-Dzdoamowt-NH 3.5-68063-0 Solution Otic 11/10/2023 Active FLUVIRIN 0626-7874 45 MCG (15 MCG X 3)/0.5 ML INTRAMUSCULAR SUSPENSION *Reorder from [employer] for eRx and Interaction Alerts* 11/10/2023 Active Polyethylene Glycol 3350 Powder Oral 11/10/2023 Active Ranitidine HCl 300 MG Tablet Oral 11/10/2023 Active Acetaminophen Extra Strength 500 MG Tablet Oral 11/10/2023 Activ e Gabapentin 400 MG Capsule Oral 11/10/2023 Active Ergocalciferol 1.25 MG (82945 UT) Capsule Oral 11/10/2023 Active Gabapentin 300 [...] 100MG Tablet Therapy Pack Oral *Reorder from [facility] for eRx and Interaction Alerts* 11/10/2023 Active ProAir HFA 108 (90 Base) MCG/ACT Aerosol Solution Inhalation 11/10/2023 Act danica Cyclobenzaprine HCl 5 MG Tablet Oral 11/10/2023 Active PNEUMOVAX-23 25 MCG/0.5 ML INJECTION SOLUTION *Reorder from [facility] for eRx and Interaction Alerts* 11/10/2023 Active dexAMETHasone 2 MG Tablet Oral 11/10/2023 Active traMADol HCl 50 MG Tablet Oral 11/10/2023 Active Meclizine HCl 25 MG Tablet Oral 11/10/2023 Active FLUVIRIN 7170-1858 45 MCG (15 MCG X 3)/0.5 ML INTRAMUSCULAR SUSPENSION *Reorder from [facility] for eRx and Interaction Alerts* 11/10/2023 Active Advil *Pick strength-form from [facility] for eRX* 11/10/2023 Active Verapamil HCl ER 120 MG Tablet Extended Release Oral 11/10/2023 Acti ve EAR WAX REMOVAL 6.5 % Solution Otic 11/10/2023 Active Bisacodyl EC 5 MG Tablet Delayed Release Oral 11/10/2023 Active FLUVIRIN 4041-2052 45 mcg (15 mcg x 3)/0.5 mL SYRINGE (ML) INTRAMUSCULAR *Reorder from [facility] for eRx and Interaction Alerts* 11/10/2023 Active Meloxicam 15 MG Tablet Oral 11/10/2023 Active methylPREDNISolone 4 MG Tablet Therapy Pack Oral 11/10/2023 Active Cyclobenzaprine HCl 10 MG Tablet Oral 11/10/2023 Active STIMULANT LAXATIVE PLUS 8.6-50 mg Tablet Oral *Reorder from [facility] for eRx and Interaction Alerts* 11/10/2023 Active FLUVIRIN 7679-8487 45 mcg (15 mcg x 3)/0.5 mL VIAL (ML) INTRAMUSCULAR *Reorder from [facility] for eRx and Interaction Alerts* 11/10/2023 Active INSULIN SYRINGE U-100 WITH NEEDLE 1 ML 29 GAUGE X 7/16 *Reorder from [facility] for eRx and Interaction Alerts* 11/10/2023 Active OneTouch Ultra 2 w/Device Kit 11/10/2023 Active ALPRAZolam 0.5 MG Tablet Oral 11/10/2023 Active EASY TOUCH 30 gauge EACH MISCELLANEOUS *Reorde r from [facility] for eRx and Interaction Alerts* 11/10/2023 Active Montelukast Sodium 10 MG Tablet Oral 11/10/2023 Active Fluticasone Propionate Diskus 50 MCG/ACT Aerosol Powder Breath Activated Inhalation *Reorder from [facility] for eRx and Interaction Alerts* 11/10/2023 Active ONETOUCH ULTRA2 METER KIT *Reorder from [facility] for eRx and Interaction Alerts* 11/10/2023 [...] yrs and above Unknown 07/05/2014 Administered Novel [id number], preservative free Unknown 07/18/2018 Administered Pneumococcal conjugate [...] Medicare Replacement/ Advantage - Ppo [address] [address] [place] [address] [id number] AMBROSE PETERSEN Self - patient is the insured [facility] [address] [place] [phone] [id number] TRINITY CAITLINTREVIN Self - patient is the insured Medical (General) History Surgical History Surgery Date(Month/Year) Appendectomy () Hysterectomy () Other Any surgical history Colectomy (13666) Cardiac stent
== END 2025-08-14 13:05 | disposition home or self-care (01) ==
PROVIDERS: PCP Physician Assistant; Visit Provider Pain Medicine Interventional Pain Medicine
DX: M25.552 Pain in left hip (principal); M25.551 Pain in right hip; M25.512 Pain in left shoulder; M25.511 Pain in right shoulder; M25.562 Pain in left knee; M25.561 Pain in right knee; M54.12 Radiculopathy, cervical region; M54.14 Radiculopathy, thoracic region; M54.16 Radiculopathy, lumbar region
CPT/HCPCS: 72040; 72072; 72100; 73030; 73521; 73564